=== PATIENT | female | born 1945 | race African-American/Black ===

== ENCOUNTER 2020-08-19 20:17 | Inpatient (IN) ==
[2020-08-19] MEDS ORDERED: niCARdipine 25 MG in SODIUM CHLORIDE 0.9% 240 ML IV PRN (20:35)
[2020-08-19] MEDS ORDERED: haloperidoL 5 MG TAB PO STA (20:41)
[2020-08-19] MEDS ORDERED: LORazepam 1 MG TAB SL STA (20:41)
[2020-08-19 20:57] LABS: Basophils # (auto) 0.02 K/uL (0-0.2); Basophils % (auto) 0.3 %; Eosinophils % (auto) 1.3 %; Hematocrit (blood only) 41.3 % (37-47); Hemoglobin 13.9 g/dL (12.0-16.0); Immature Granulocytes # (auto) 0.03 K/uL (0.00-0.02); Immature Granulocytes % (auto) 0.4 %; Lymphocytes # (auto) 2.46 K/uL (1.2-3.4); Lymphocytes % (auto) 32.4 %; Mean Corpuscular Hemoglobin 31.9 pg (25-34); Mean Corpuscular Hgb Conc 33.7 g/dL (32-36); Mean Corpuscular Volume 94.7 fL (80-100); Mean Platelet Volume 11.2 fL (7.4-10.4); Monocytes # (auto) 0.76 K/uL (0.11-0.59); Neutrophils # (auto) 4.23 K/uL (1.4-6.5); Neutrophils % (auto) 55.6 %; Platelet Count 258 K/uL (130-400); RDW Coefficient of Variation 15.2 % (11.5-14.5); Red Blood Count 4.36 M/uL (4.2-5.4)
[2020-08-19] MEDS ORDERED: SODIUM CHLORIDE 0.9% 1000ML 1,000 ML IV ONE (20:57)
[2020-08-19 21:07] LABS: iSTAT Creatinine 1.2 mg/dl (0.6-1.3); iSTAT Hemoglobin 13.6 g/dl (12.0-16.0); iSTAT Ionized Calcium 1.09 mmol/l (1.12-1.32); iSTAT Potassium 6.3 mmol/L (3.3-5.0)
[2020-08-19 21:13] LABS: Alanine Aminotransferase 15 U/L (12-78); Albumin Level 3.2 gm/dl (3.4-5.0); Aspartate Aminotransferase 12 U/L (15-37); BUN Creatinine Ratio 12.3 (10-20); Blood Urea Nitrogen 18 mg/dl (7-18); Calcium 9.3 mg/dl (8.5-10.1); Carbon Dioxide 28 mmol/L (21-32); Chloride 108 mmol/L (98-107); Est GFR (African American) 41.7; Glucose 132 mg/dl (70-99); Potassium 4.2 mmol/L (3.5-5.1); Sodium 141 mmol/L (136-145)
[2020-08-19 21:24] LABS: Albumin Globulin Ratio 0.7 (0.9-2); Alkaline Phosphatase 98 U/L (45-117); Bilirubin,Total 0.2 mg/dl (0.2-1); Creatine Kinase 92 U/L (26-192); Creatine Kinase MB 1.3 ng/ml (0.5-3.6); Globulin 4.7 gm/dl (2.5-4.0); Total Protein 7.9 gm/dl (6.4-8.2); Troponin I < 0.015 ng/ml (0-0.045)
[2020-08-19] MEDS ORDERED: OPTIRAY 320 125ml IV ONE (21:43)
[2020-08-19] MEDS ORDERED: ASPIRIN CHEW 324 MG PO STA (23:18)
[2020-08-20] MEDS ORDERED: LABETALOL HCL IV 5 MG/ML 20ML IV STA (01:04)
[2020-08-20] MEDS ORDERED: ACETAMINOPHEN 325 MG TAB PO PRN (01:29)
[2020-08-20] MEDS ORDERED: LABETALOL HCL IV 5 MG/ML 20ML IV PRN (01:29)
[2020-08-20] MEDS ORDERED: GLUCAGON FOR INJ 1 MG VIAL SQ PRN (01:29)
[2020-08-20] MEDS ORDERED: DOCUSATE SODIUM 100 MG CAP PO PRN (01:29)
[2020-08-20] MEDS ORDERED: GLUCOSE 10 TABS/TUBE PO PRN (01:29)
[2020-08-20] MEDS ORDERED: DEXTROSE 50% 50 ML SYRINGE IV PRN (01:29)
[2020-08-20] MEDS ORDERED: GLUCOSE 40% GEL 15 GM TUBE PO PRN (01:29)
[2020-08-20] MEDS ORDERED: CARBOHYDRATES FOR HYPOGLYCEMIA PO PRN (01:29)
--- NOTE | 2020-08-20 01:51 | History & Physical Report ---
Date of Service August 19, 2020 Assessment & Plan (1) Altered mental status: 74yo AA female presenting with AMS, HTN. Patient was administered Ativan and Haldol in ER, blood pressure improved with IV Nicardipine now discontinued. Son reports patient has some dementia at baseline. Presently she is acting and mentating as usual - he notes no deficits. Labs are largely unremarkable - no leukocytosis, electrolytes WNL. She has mildly elevated Cr of 1.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 Patient is currently on no medications. Ddx to include hypertensive encephalopathy. Doubt acute basilar CVA as patient with no focal deficits, GRADY or visual disturbance. -Admit to PCU -Neuro checks per protocol -Check MRI brain -Check 2D echo -Check HgbA1C and Lipid panel -Check Utox, Ammonia level for AMS workup -PT/OT evaluation -Neurology consultation appreciated -Patient was previously taking ASA 325mg po TID. 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 Age indeterminant. Some suggestion of collateral formation with description of other vessels. I suspect chronic occlusion rather than acute. Patient with no neurological deficits and is currently back to baseline mental status per her son. -MRI Brain -Neurology consultation appreciated -Check Lipids, AIC -ASA 81mg po daily Present on Admission?: Yes (3) Diabetes: Mildly elevated blood sugar. Patient currently not on any diabetes medications -Check HgbA1C -ISS, goal blood sugar 100 - 140 -CC diet as tolerated Present on Admission?: Yes (4) Hypertension: Patient markedly hypertensive on arrival. She was started on Nicardipine drip in the ER which has subsequently been weaned off. Presently 176/88. She is not on any antihypertensive agents outpatient -Labetalol 10mg IV q 4 hours PRN BP >180/110 -Consider initiating antihypertensives - Thiazide, Calcium channel toan are preferred agents -Patient will need to establish care with a PCP Present on Admission?: Yes (5) CAD (coronary artery disease): Son recalls that patient had a treadmill stress test performed in 2014. Uncertain if she had a cardiac catheterization. She was told that she has some coronary disease but no intervention was needed. This was performed in [facility]. Presently without chest discomfort. EKG with no ischemic changes. -Record request -Continue ASA, change dose to 81mg daily -Patient may need statin therapy - Lipid panel in AM F/E/N - LR at 80mL/hr x 2 liters, electrolytes WNL, CC/AHA diet as tolerated - easy to ches Ppx - SCDs to bilateral LE Code - DNR/DNI per discussion with patient Dispo -Admit to PCU Patient will need to establish care with a PCP. Possibly [facility] for now as she is establishing her insurance. POC - Leif Campbell - son - [phone] Present on Admission?: Yes Admission and Anticipated Discharge Date Admission Date: August 19, 2020 History of Present Illness Chief Complaint: Altered mental status Primary Care Provider: NO PCP Lashell Campbell is a pleasant 74yo AA female presenting with AMS. Patient lives alone in an apartment above a restaurant in [place]. The restaurant noticed water was leaking from the ceiling upstairs. Police were called and found the patient on the floor with water all over the floor. She was confused and combative. She was administered Ativan en route to [facility]. On arrival patient found to be afebrile, HTN at 221/144. She was started on a Nicardipine drip in the ER with improvement in blood pressure. Patient's son at bedside and provides some history. He states that patient lives alone and usually does well. She has had two falls in the past and has been unable to get herself up. Patient relocated from [facility] 2 years ago. She does not routinely see a physician. Her son helps to care for her. Patient states that she tripped and fell in her home and that water was all over her floor. She is uncertain why there was so much water in her apartment. Details unclear. She denies head trauma, LOC. Denies fever, chest pain, palpitations, abdominal pain, nausea, vomiting. Denies GRADY/visual disturbance/numbness/tingling/weakness or difficulty walking. She has occasional chills as well as a dry cough. She has occasional diarrhea and constipation. Otherwise no complaints. Son states that she is at her baseline status at this time. ER Course: Haldol 5mg, Ativan, Nicardipine gtt, NSS Allergies Allergy/AdvReac Type Severity Reaction Status Date / Time aspirin [From Bufferin] Allergy Unknown Verified 08/19/20 23:07 calcium carbonate Allergy Unknown Verified 08/19/20 23:07 [From Bufferin] magnesium [From Bufferin] Allergy Unknown Verified 08/19/20 23:07 Penicillins Allergy Unknown Verified 08/19/20 23:07 Home Medications Medication Instructions Recorded Confirmed Type aspirin 325 mg PO TID 08/19/20 08/19/20 History Past Med/Surg History Medical History (Updated 08/20/20 @ 02:44 by Cira Mayer DO) CAD (coronary artery disease) Diabetes Hypertension Stroke 2002, no residual deficits Surgical History (Updated 08/20/20 @ 01:59 by Cira Mayer DO) No significant past surgical history Family History (Updated 08/20/20 @ 01:59 by Cira Mayer DO) Other Coronary heart disease Hypertension Social History (Updated 08/20/20 @ 02:00 by Cira Mayer DO) Smoking Status: Never smoker Hx Alcohol Use: No Hx Substance Use: No Preferred Language: Estonian Beliefs That Will Affect Care: Yazdanism Yazdanism Beliefs: Refusing care "It's in God's hands" Current Living Situation: Alone Other Information That Helps Us Care for You: No Feels Safe at Home: Yes Safety Concerns: Feels Safe At This Time Review of Systems Review of Systems: All systems reviewed & are unremarkable except as noted in HPI & below Physical Exam Physical Exam: General: patient resting comfortably, NAD, non-toxic in appearance, AA&O to self and hospital, able to answer most questions appropriately and follow commands Skin: warm, dry, intact, no rashes or lesions, toenails overgrown with onychomycosis HEENT: NC/AT, PERRL, EOMI, anicteric sclera, conjunctiva without injection, external ear normal to inspection and nontender, nares patent, moist mucus membranes, lower dentures only, no top teeth, no oropharyngeal lesions, neck supple, trachea midline, no LAD, no thyromegaly, no JVD Heart: +S1/S2, regular, no m/r/g Lungs: equal air entry bilaterally, no rales/rhonchi/wheezes Abd: +BS, soft, NT/ND, no masses/organomegaly/ascites, small umbilical hernia, nontender,soft and reducible Ext: warm, 2+ pulses in UE/LE bilaterally, no clubbing/cyanosis or edema Neuro: nonfocal, patient AA&O x 2, speech intact, CN II-XII intact, sensation to light touch intact, no facial droop, moving all extremities on command with equal strength 5/5, gait not assessed Results & Data Results & Data ([facility]) Vital Signs (Past 12 Hours) Vital Signs Temp Pulse Pulse Resp BP BP Pulse Ox 08/20/20 01:34 88 08/20/20 00:50 82 13 100 08/20/20 00:40 82 14 98 08/20/20 00:37 83 18 99 08/20/20 00:36 81 13 179/81 H 98 08/20/20 00:30 84 15 93 08/20/20 00:15 81 15 99 08/20/20 00:01 85 16 174/81 H 97 08/20/20 00:00 81 15 97 08/19/20 23:45 80 17 100 08/19/20 23:30 80 17 143/89 H 97 08/19/20 23:00 81 18 154/79 H 99 08/19/20 22:40 84 18 98 08/19/20 22:30 77 13 168/66 H 100 08/19/20 22:20 74 18 100 08/19/20 22:10 72 24 100 08/19/20 22:04 74 18 192/80 H 99 08/19/20 22:02 69 16 192/80 H 98 08/19/20 22:00 77 18 08/19/20 21:38 73 17 221/93 H 100 08/19/20 21:31 73 19 214/104 H 98 08/19/20 21:30 74 17 100 08/19/20 21:15 79 18 100 08/19/20 21:13 80 15 176/86 H 100 08/19/20 21:12 73 16 176/86 H 98 08/19/20 21:00 83 22 204/94 H 97 08/19/20 20:52 85 18 95 08/19/20 20:50 86 22 08/19/20 20:49 87 22 221/144 H 08/19/20 20:38 86 21 08/19/20 20:33 36.8 C 98 H 18 209/121 H 95 08/19/20 20:24 83 20 209/121 H Laboratory Results Lab Results 08/19/20 08/19/20 08/19/20 Range/Units 20:45 20:45 20:50 WBC 7.60 (4.8-10.8) K/uL RBC 4.36 (4.2-5.4) M/uL Hgb 13.9 (12.0-16.0) g/dL POC Hgb (12.0-16.0) g/dl Hct 41.3 (37-47) % POC Hct (37-47) % MCV 94.7 (80-100) fL MCH 31.9 (25-34) pg MCHC 33.7 (32-36) g/dL RDW Std Deviation 53.0 H (36.4-46.3) fL RDW Coeff of Gerry 15.2 H (11.5-14.5) % Plt Count 258 (130-400) K/uL MPV 11.2 H (7.4-10.4) fL Immature Gran % (Auto) 0.4 % Neut % (Auto) 55.6 % Lymph % (Auto) 32.4 % [place] % (Auto) 10.0 % Eos % (Auto) 1.3 % Baso % (Auto) 0.3 % Neut # (Auto) 4.23 (1.4-6.5) K/uL Lymph # (Auto) 2.46 (1.2-3.4) K/uL [place] # (Auto) 0.76 H (0.11-0.59) K/uL Eos # (Auto) 0.10 (0-0.5) K/uL Baso # (Auto) 0.02 (0-0.2) K/uL Immature Gran # (Auto) 0.03 H (0.00-0.02) K/uL POC Sodium (135-144) mmol/L Sodium 141 (136-145) mmol/L POC Potassium (3.3-5.0) mmol/L Potassium 4.2 (3.5-5.1) mmol/L POC Chloride (101-112) mmol/L Chloride 108 H (98-107) mmol/L Carbon Dioxide 28 (21-32) mmol/L POC Total CO2 (24-31) mmol/L Anion Gap 5.0 (3-11) POC Anion Gap (16-25) mmol/L POC BUN (7-18) mg/dl BUN 18 (7-18) mg/dl Creatinine 1.43 H (0.6-1.2) mg/dl POC Creatinine (0.6-1.3) mg/dl Est Cr Clr Drug Dosing Not Reportable Est GFR ( Amer) 41.7 Est GFR (Non-Af Amer) 36.0 BUN/Creatinine Ratio 12.3 (10-20) Glucose 132 H (70-99) mg/dl POC Glucose (other) (70-99) mg/dl Calcium 9.3 (8.5-10.1) mg/dl POC Ioniz Calcium Quoc (1.12-1.32) mmol/l Phosphorus 2.4 L (2.5-4.9) mg/dl Magnesium 2.3 (1.8-2.4) mg/dl Total Bilirubin 0.2 (0.2-1) mg/dl AST 12 L (15-37) U/L ALT 15 (12-78) U/L Alkaline Phosphatase 98 (45-117) U/L Total Creatine Kinase 92 (26-192) U/L CK-MB (CK-2) 1.3 (0.5-3.6) ng/ml CK/CKMB % Calc 1.4 (0-3.0) Troponin I < 0.015 (0-0.045) ng/ml Total Protein 7.9 (6.4-8.2) gm/dl Albumin 3.2 L (3.4-5.0) gm/dl Globulin 4.7 H (2.5-4.0) gm/dl Albumin/Globulin Ratio 0.7 L (0.9-2) TSH 3.710 (0.300-4.500) uIu/ml Ethyl Alcohol mg/dL (0-3) mg/dl COVID-19 Eval [facility] SARS-CoV-2, RNA, NAAT (NEGATIVE) 08/19/20 08/19/20 08/19/20 Range/Units 20:50 20:54 21:19 WBC (4.8-10.8) K/uL RBC (4.2-5.4) M/uL Hgb (12.0-16.0) g/dL POC Hgb 13.6 (12.0-16.0) g/dl Hct (37-47) % POC Hct 40 (37-47) % MCV (80-100) fL MCH (25-34) pg MCHC (32-36) g/dL RDW Std Deviation (36.4-46.3) fL RDW Coeff of Gerry (11.5-14.5) % Plt Count (130-400) K/uL MPV (7.4-10.4) fL Immature Gran % (Auto) % Neut % (Auto) % Lymph % (Auto) % [place] % (Auto) % Eos % (Auto) % Baso % (Auto) % Neut # (Auto) (1.4-6.5) K/uL Lymph # (Auto) (1.2-3.4) K/uL [place] # (Auto) (0.11-0.59) K/uL Eos # (Auto) (0-0.5) K/uL Baso # (Auto) (0-0.2) K/uL Immature Gran # (Auto) (0.00-0.02) K/uL POC Sodium 139 (135-144) mmol/L Sodium (136-145) mmol/L POC Potassium 6.3 H* (3.3-5.0) mmol/L Potassium (3.5-5.1) mmol/L POC Chloride 107 (101-112) mmol/L Chloride (98-107) mmol/L Carbon Dioxide (21-32) mmol/L POC Total CO2 31 (24-31) mmol/L Anion Gap (3-11) POC Anion Gap 9.0 L (16-25) mmol/L POC BUN 27 H (7-18) mg/dl BUN (7-18) mg/dl Creatinine (0.6-1.2) mg/dl POC Creatinine 1.2 (0.6-1.3) mg/dl Est Cr Clr Drug Dosing Est GFR ( Amer) Est GFR (Non-Af Amer) BUN/Creatinine Ratio (10-20) Glucose (70-99) mg/dl POC Glucose (other) 143 H (70-99) mg/dl Calcium (8.5-10.1) mg/dl POC Ioniz Calcium Quoc 1.09 L (1.12-1.32) mmol/l Phosphorus (2.5-4.9) mg/dl Magnesium (1.8-2.4) mg/dl Total Bilirubin (0.2-1) mg/dl AST (15-37) U/L ALT (12-78) U/L Alkaline Phosphatase (45-117) U/L Total Creatine Kinase (26-192) U/L CK-MB (CK-2) (0.5-3.6) ng/ml CK/CKMB % Calc (0-3.0) Troponin I (0-0.045) ng/ml Total Protein (6.4-8.2) gm/dl Albumin (3.4-5.0) gm/dl Globulin (2.5-4.0) gm/dl Albumin/Globulin Ratio (0.9-2) TSH (0.300-4.500) uIu/ml Ethyl Alcohol mg/dL < 3.0 (0-3) mg/dl COVID-19 Eval Order SARS-CoV-2, RNA, NAAT NEGATIVE (NEGATIVE) Diagnostic Findings CT Head/CTA Head/CTA Neck: Per STAT-rad - Nonopacification of the basilar artery consistent wtih occlusion, age indeterminate. Diffuse thinning of the bilateral posterior cerebral arteries with suggestion of partial reconstitution of the tip or cephalad aspect of the basilar artery. Suggestion of occlusion of the distal aspect of the right posterior cerebral artery, age indeterminate. Unremarkable bilateral middle cerebral and anterior cerebral arteries with no other sites suggestive of high grade stenosis, occlusion or aneurysm. No ICH, mass effect or edema. No evidenc of acute cortical stroke. Periventricular small vessel ischemic change. Moderate generalized brain atrophy. Encephalomalacia within the right cerebellar hemisphere, likely sequela of old infarct or hemorrhage. Visualized sinuses and mastoid air cells are clear. Minor calcified atherosclerotic disease primarilyl in the region of the bulb with no evidence of stenosis, occlusion or dissection involving the bilateral carotid arteries. Unremarkable bilateral vertebral arteries. PG Care Time/CCT Total # of Minutes Spent Total Time Spent with Patient: Total time spent is greater than 50% in coordination of care (as documented) at patient's floor/unit and/or counseling patient: Coding Level of Care Code 08153 Initial Inpt Care Lvl 3 Diagnoses Altered mental status R41.0 Altered mental status type: disorientation Basilar artery occlusion I65.1 Diabetes E11.9 Diabetes mellitus type: type 2 Diabetes mellitus fdc insulin use: without local company intermodal truck driver use Diabetes mellitus complication status: without complication Hypertension I10 Hypertension type: essential hypertension CAD (coronary artery disease) I25.10 Coronary Disease-Associated Artery/Lesion type: [place] artery [place] vs. transplanted heart: [place] heart Associated angina: without angina (1) Diabetes Diabetes mellitus type: type 2 Diabetes mellitus fdc insulin use: w ithout fdc use Diabetes mellitus complication status: without complication Qualified Code(s): E11.9 - Type 2 diabetes mellitus without complications (2) CAD (coronary artery disease) Coronary Disease-Associated Artery/Lesion type: [place] artery [place] vs. transplanted heart: [place] heart Associated angina: without angina Qualified Code(s): I25.10 - Atherosclerotic heart disease of [place] coronary artery without angina pectoris (3) Hypertension Hypertension type: essential hypertension Qualified Code(s): I10 - Essential (primary) hypertension (4) Altered mental status Altered mental status type: disorientation Qualified Code(s): R41.0 - Disorientation, unspecified
[2020-08-20 01:53] LABS: Magnesium 2.3 mg/dl (1.8-2.4); Phosphorus 2.4 mg/dl (2.5-4.9)
[2020-08-20] MEDS: LACTATED RINGER'S 1,000 ML IV SCH ×2 (02:20→16:58)
[2020-08-20 06:31] LABS: Appearance Urine Clear (Clear); Bilirubin Urine Negative (Negative); Blood Urine Negative (Negative); Color Urine Yellow; Glucose Urine UA Negative (Negative); Ketones Urine Negative (Negative); Leukocyte Esterase Urine Negative (Negative); Nitrite Urine Negative (Negative); Protein Urine Negative (Negative); Urobilinogen Urine Negative (Negative)
[2020-08-20 06:50] LABS: Amphetamines+Metham, Urine Neg (Neg); Barbiturates, Urine Neg (Neg); Benzodiazepine, Urine Neg (Neg); Cocaine, Urine Neg (Neg); MDMA (Ecstacy), Urine Neg (Neg); Methadone, Urine Neg (Neg); Opiate, Urine Neg (Neg); Phencyclidine, Urine Neg (Neg)
[2020-08-20 06:58] LABS: Basophils # (auto) 0.02 K/uL (0-0.2); Basophils % (auto) 0.2 %; Eosinophils % (auto) 1.1 %; Hematocrit (blood only) 40.7 % (37-47); Hemoglobin 13.7 g/dL (12.0-16.0); Immature Granulocytes # (auto) 0.02 K/uL (0.00-0.02); Immature Granulocytes % (auto) 0.2 %; Lymphocytes # (auto) 3.49 K/uL (1.2-3.4); Lymphocytes % (auto) 39.9 %; Mean Corpuscular Hemoglobin 31.7 pg (25-34); Mean Corpuscular Hgb Conc 33.7 g/dL (32-36); Mean Corpuscular Volume 94.2 fL (80-100); Mean Platelet Volume 11.1 fL (7.4-10.4); Monocytes # (auto) 1.05 K/uL (0.11-0.59); Neutrophils # (auto) 4.07 K/uL (1.4-6.5); Neutrophils % (auto) 46.6 %; Platelet Count 214 K/uL (130-400); RDW Coefficient of Variation 15.3 % (11.5-14.5); RDW Standard Deviation 53.3 fL (36.4-46.3); Red Blood Count 4.32 M/uL (4.2-5.4); White Blood Count 8.75 K/uL (4.8-10.8)
[2020-08-20 07:21] LABS: BUN Creatinine Ratio 11.8 (10-20); Calcium 8.4 mg/dl (8.5-10.1); Creatinine Clr Calc Pharmacy 47.3 ml/min; Est GFR (African American) 59.2; Est GFR (Non-African American) 51.1; Potassium 3.9 mmol/L (3.5-5.1)
--- NOTE | 2020-08-20 07:54 | CT Scan Report ---
HEAD CT NONCONTRAST CT DOSE: 1212.86 mGy.cm HISTORY: Altered mental status. TECHNIQUE: Multiaxial CT images of the head were performed without the use of intravenous contrast. A utomated exposure control was utilized for this study. A dose lowering technique was utilized adheri ng to the principles of ALARA. Comparison: None. Findings: The paranasal sinuses and mastoid air cells are clear. The calvarium and skull base are int act. There is no mass, hematoma, midline shift, acute infarct. White matter hypodensity is nonspecifi c but suggestive of microvascular ischemic change. The ventricles and sulci demonstrate mild age-rela belia involutional changes. Old small left parietal infarct. There are also focal area of encephalomala abelardo within the cerebellar hemispheres consistent with old infarcts. No definite acute infarct identif ied. Impression: No acute intracranial abnormality. Old infarcts as described above. ACT 112: Negative or not required by law. Electronically signed by: Roland Jasso M.D. 08/20/2020 7:53 AM
[2020-08-20] MEDS: ASPIRIN 81 MG ECTAB PO SCH (08:09)
--- NOTE | 2020-08-20 08:39 | CT Scan Report ---
HEAD & NECK CTA HISTORY: Confusion. Stroke Like Symptoms TECHNIQUE: Multiaxial CT images of the head were performed following the intravenous administration o f contrast to evaluate the major cerebral vessels. Multiaxial CT images of the neck were also perform ed following the intravenous administration of contrast to evaluate the major cervical vessels. Maxim um intensity projection images were also obtained. A dose lowering technique was utilized adhering to the principles of ALARA. COMPARISON: None. FINDINGS: There is mild to moderate multifocal narrowing within the distal vertebral arteries. There is occlusi on of the basilar artery the bilateral telegraph mechanic are only faintly visualized and demonstrate diffuse thinn ing. The major dural venous sinuses appear patent. There is moderate to severe multifocal narrowing w ithin the bilateral intracranial internal carotid arteries due to the atherosclerotic plaque. There i s mild multifocal narrowing within the distal bilateral ACAs. There is also mild to moderate multifoc al narrowing seen within the bilateral M1 segments without occlusion. The aortic arch and proximal great vessels are widely patent. Mild to moderate narrowing at the rios gins of the bilateral vertebral arteries. There is also focal area of moderate to severe narrowing wi thin the proximal left vertebral artery at the C7 level best seen on image 134. There is mild multifo patricia narrowing at the distal vertebral arteries at the C1 level. Mild atherosclerotic plaque at the bi lateral carotid bifurcations. However, no significant stenosis or occlusion within the bilateral comm on or internal carotid arteries. There is a 4 mm penetrating ulcer at the proximal left subclavian ar gabriel. IMPRESSION: 1. Occlusion of the basilar artery with diffuse moderate to severe thinning of the bilateral telegraph mechanic. Th leticia are only faintly visualized on this study likely due to the occluded basilar artery. 2. Multifocal narrowing seen throughout the intracranial internal carotid arteries, bilateral ACAs, a nd bilateral MCA's without occlusion. 3. Multifocal narrowing within the bilateral cervical vertebral arteries as described above. 4. No significant stenosis or occlusion within the bilateral common or internal carotid arteries. 5. A 4 mm penetrating ulcer at the proximal left subclavian artery. ACT 112: Negative or not required by law. Electronically signed by: Roland Jasso M.D. 08/20/2020 8:37 AM
--- NOTE | 2020-08-20 08:42 | XRay Report ---
XR chest 1V portable CLINICAL HISTORY: weakness COMPARISON STUDY: No previous studies for comparison. FINDINGS: The heart is mildly enlarged. There is no failure. There is no focal pulmonary consolidatio n. There are no pleural effusions. There is a prominent left cardiophrenic angle fat pad. There is a calcified granuloma the left lung base. There are no significant pleural effusions.[ IMPRESSION: No active disease in the chest. ACT 112: Negative or not required by law. Electronically signed by: Shar Spear M.D. 08/20/2020 8:41 AM
[2020-08-20] MEDS: INSULIN ASPART 100 UNITS/ML 3 ML PEN SC SCH ×4 (08:54→21:42)
--- NOTE | 2020-08-20 10:24 | Electrocardiogram Report ---
Test Reason : Blood Pressure : / mmHG Vent. Rate : 089 BPM Atrial Rate : 089 BPM P-R Int : 166 ms QRS Dur : 080 ms QT Int : 338 ms P-R-T Axes : 023 -13 081 degrees QTc Int : 411 ms Normal sinus rhythm Possible Left atrial enlargement Nonspecific T wave abnormality Abnormal ECG No previous ECGs available Confirmed by Min Sultana ([id number]) on 08/20/2020 10:24:10 AM Referred By: REFERRED SELF Confirmed By:Min Sultana
--- NOTE | 2020-08-20 10:26 | Neurology Consultation ---
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 This morning, she does not seem delirious, but is sleepy ( Haldol and Ativan given in the ER last evening because of combativeness). She is not combative or agitated at all. I believe she currently has significant underlying dementia. There are no focal abnormalities on physical exam and no meningeal signs. I do not believe she had a stroke but I cannot exclude this. CT of the head shows multiple old ischemic strokes in the left parietal and cerebellar hemispheres. She has a history of significant hypertension which was not controlled on admission (certainly controlled currently) and has a basilar artery occlusion noted on CT angiography. In addition she has multiple areas of narrowing and stenosis in most of the major arteries of her head and neck bilaterally. I believe all of this is old (an acute basilar artery occlusion would be devastating clinically) and she has been on a high daily dose of aspirin recently. She has not been receiving adequate medical attention ( her choice) and lives alone. Recommendations: 1. although I would prefer an MRI of the brain without contrast to evaluate for acute stroke I do not believe the patient would consent or cooperate for this study at this time. We can hold off on this for now. A repeat CT scan of the head later today to compare could be ordered. 2. physical, occupational, and speech therapy consult. Increase activity as able. 3. Social service consult. This patient should not live alone any more. 4. I would discontinue aspirin and consider clopidogrel 75 milligrams daily for stroke prevention and hoping that cerebral arteries remain open. There is nothing we can do for the occluded basilar artery and she is not an anticoagulant candidate. Overall, I spent a total of 60 minutes with this case including review of records, review of CT films, direct evaluation the patient at bedside, and discussion of the case with the RN at bedside, patient, and Dr. Bang, including differential diagnosis and treatment options. History of Present Illness Reason for Consultation: Patient is a 74-year-old, who I was asked to see at the request of Dr. Mayer, for neurologic consultation regarding altered mental status and basilar artery occlusion. Requesting Physician: Dr. Mayer Attending Physician: Itz Bang History of Present Illness patient cannot give any type of meaningful history this morning. Apparently she has a history of hypertension, diabetes, coronary artery disease, and he stroke in 2002 of uncertain location or severity. She had recently (About 2 years ago) moved to the [facility] from [place]. she apparently is supposed to be on aspirin but takes 3 regular aspirin per day. She lives alone in an apartment in [place] and does not obtain regular medical attention. Apparently she was found confused and combative in her apartment last evening and water was on the floor to the extent that it was leaking down below into the restaurant she was living above. She arrived to the emergency room at 2023 on August 19 with a temperature of 36.8, pulse 98, respiratory rate 18, blood pressure 2/9 over 121, and O2 saturation 95 percent. She was somewhat confused in the emergency room motor neuro exam physically was normal with no focal weakness or other abnormalities. CBC and Chem profile were largely unremarkable although the glucose was 132. CK was 92 and TSH was 3.7. Alcohol level was 0 and she had a negative tox screen. Chest x-ray was unremarkable. CT scan of the head showed multiple old infarcts in the cerebellar hemispheres and left parietal head region. CT angiography of the head neck revealed multiple abnormalities including an occluded basilar artery with thin posterior cerebral arteries bilaterally. There was multifocal narrowing in the distal internal carotid arteries, anterior cerebral arteries, and middle cerebral arteries bilaterally. Cervical vertebral arteries were narrow as well. The patient is unable to consent for or cooperate for an MRI. She complains of pain in her feet ( which has been going on a long time) and feeling very fatigued. Otherwise she has no headache or other complaints. She wants to go back to sleep. She has had normal sinus rhythm overnight with a heart rate in the 60s. Blood pressure is 144/68 this morning and repeat CBC and Chem profile were unremarkable. Triglyceride was 163 and total cholesterol was 182. hemoglobin A1c is pending. Allergies Allergy/AdvReac Type Severity Reaction Status Date / Time aspirin [From Bufferin] Allergy Unknown Verified 08/19/20 23:07 calcium carbonate Allergy Unknown Verified 08/19/20 23:07 [From Bufferin] magnesium [From Bufferin] Allergy Unknown Verified 08/19/20 23:07 Penicillins Allergy Unknown Verified 08/19/20 23:07 Home Medications Medication Instructions Recorded Confirmed Type aspirin 325 mg PO TID 08/19/20 08/19/20 History Patient History Medical History CAD (coronary artery disease) Diabetes Hypertension Stroke 2002, no residual deficits Surgical History No significant past surgical history Family History Other Coronary heart disease Hypertension Social History Smoking Status: Never smoker Hx Alcohol Use: No Hx Substance Use: No Preferred Language: Yoruba Beliefs That Will Affect Care: Scientology Scientology Beliefs: Refusing care "It's in God's hands" Current Living Situation: Alone Other Information That Helps Us Care for You: No Feels Safe at Home: Yes Safety Concerns: Feels Safe At This Time Review of Systems Constitutional: + fatigue and + weakness; no fever Eyes: no diplopia, no eye pain and no worsening vision Ear, Nose, Mouth, Throat: no ear pain, no tinnitus, no hearing loss, no dizziness, no hoarseness and no dysphagia Respiratory: no cough and no dyspnea Cardiovascular: no chest pain, no palpitations and no lightheadedness Gastrointestinal: no abdominal pain, no nausea and no vomiting Genitourinary: no dysuria, no urinary frequency and no urinary incontinence Musculoskeletal: no back pain, no neck pain, no radicular pain, no joint pain and no myalgia Integumentary: no rash and no lesions Neurologic: + generalized weakness, + confusion and + memory loss; no gait abnormality, no localized weakness, no tingling, no numbness, no tremor(s), no abnormal movements, no headache(s) and no abnormal speech Psychiatric: + difficulty concentrating and + confusion; no depression, no irritability, no anxiety and no hallucinations Endocrine: no fatigue and no flushing Hematologic / Lymphatic: no easy bleeding and no easy bruising Allergy / Immunological: no urticaria and no problem reported Exam (Neuro) Physical Exam: The patient is right-handed. The patient is very sleepy and tired but easily aroused with voice. If left alone she will drift back to sleep. Speech is normal without any aphasia or dysarthria. She is pleasant and cooperative to a degree but sometimes she will refuse to answer or do a certain command. She knew her name and figured out the month. She believed that the presidents were [place] and [place]. she did not know her age, what town she was in ( and did not realize she was in a hospital), the day, the date, or the year. Pupils are 4 mm bilaterally and reactive to light. Extraocular eye muscles are intact without nystagmus. Visual acuity and visual storey seem normal grossly to confrontation but was difficult to be certain. There are no deficits to sensation in the face in all 3 distributions of the fifth cranial nerve bilaterally. Corneal reflexes are positive bilaterally. Facial strength and symmetry was normal bilaterally. Hearing seems normal to whisper and finger rub bilaterally. Palate moves well without asymmetry. There is normal sternocleidomastoid and trapezius (shoulder shrug) strength bilaterally. Tongue is midline with good strength bilaterally. Neck has a full range of motion without discomfort. There are no cervical bruits bilaterally. There are no cranial or ocular bruits. Heart is without murmur. There is a regular rhythm and rate. Cervical, thoracic, and lumbar spine are nontender to palpation. Gait and stance were not tested as the patient would not cooperate to sit up. With outstretched arms there is no drift. There are no resting, postural, or action tremors. There is no ataxia with finger to nose testing. There is good facility in the hands. No other abnormal involuntary movements are noted. Motor strength is 5/5 diffusely in the arms bilaterally including deltoids, maritza ps, triceps, brachioradialis, wrist flexors and extensors, mobile unit assistant, and intrinsic hand muscles. Motor strength is 5/5 diffusely in the legs bilaterally including hip flexors, quadriceps, hamstrings, gastrocnemius, tibialis anterior, tibialis posterior, and Peroneii muscles. Toe extensors are normal and there is good bulk in the extensor digitorum brevis muscles bilaterally. The limbs have good tone without rigidity or spasticity. There is no atrophy noted in the muscles. Muscle bulk is normal, there is no tenderness to palpation, no myotonia to percussion, and no fasciculations seen. Sensory examination is intact to touch and pin throughout all 4 limbs diffusely. Reflexes are 1/4 in the biceps, triceps, brachioradialis, quadriceps, and Achilles tendons bilaterally. There is no clonus bilaterally. Toes are downgoing with plantar stimulation bilaterally. Peripheral pulses are present and of normal quality distally in all 4 limbs. There is no peripheral edema noted in the limbs. Results & Data ([facility]) Vital Signs (Past 12 Hours) Vital Signs Temp Pulse Pulse Resp BP BP Pulse Ox 08/20/20 07:04 36.5 C 62 16 144/68 H 99 08/20/20 07:00 72 08/20/20 03:57 36.5 C 69 20 162/71 H 97 08/20/20 01:34 88 08/20/20 01:29 36.7 C 80 22 176/88 H 100 08/20/20 00:50 82 13 100 08/20/20 00:40 82 14 98 08/20/20 00:37 83 18 99 08/20/20 00:36 81 13 179/81 H 98 08/20/20 00:30 84 15 93 08/20/20 00:15 81 15 99 08/20/20 00:01 85 16 174/81 H 97 08/20/20 00:00 81 15 97 08/19/20 23:45 80 17 100 08/19/20 23:30 80 17 143/89 H 97 08/19/20 23:00 81 18 154/79 H 99 08/19/20 22:40 84 18 98 08/19/20 22:30 77 13 168/66 H 100 08/19/20 22:20 74 18 100 08/19/20 22:10 72 24 100 PG Care Time/CCT Total # of Minutes Spent Total Time Spent with Patient: Total time spent is greater than 50% in coordination of care (as documented) at patient's floor/unit and/or counseling patient: Coding Level of Care Code 83085 Initial Inpt Care Lvl 3 Diagnoses Altered mental status R41.0 Altered mental status type: disorientation Dementia F03.90 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
--- NOTE | 2020-08-20 19:51 | Hospitalist Progress Note ---
Date of Service August 20, 2020 Assessment & Plan (1) Hypertensive urgency: resolved. briefly was on nicardipine drip in ER then quickly weaned off. was not taking any meds at home for HTN. marked elevation in BPs may have been worsened by severe agitation requiring haldol/ativan. son reports had been on metoprolol in the past but she had taken her self off of it. was apparently trying to control her BPs "naturally." will restart metoprolol succinate 25mg daily. asa 81mg daily. (2) Altered mental status: Leif, the pt's son, reports her mother is now at baseline. Cause of altered mental status yesterday at presentation - hypertensive encephalopathy? new stroke process? other? I agree w/ Dr Kent that obtaining an MRI head would be difficult if not impossible. We did attempt to send her down for MRI - she flat out refused to get it. defer for now. no signs on physical exam of seizure (tongue bite prajapati, etc) but can't rule it out. defer on EEG for now, however. (3) Fall: unknown details - unwitnessed. found on floor in apartment. CPK wnl. PT, OT evals. not safe to live alone in apartment. likely placement. fortunately no apparent injuries from the fall. (4) Chronic cerebral ischemia: CTA and CT head with old strokes, extensive vascular disease/stenoses/plaque build-up, etc. Son confirms prior TIAs and "mini-strokes" while she was living in [place] years ago. Cont asa 81mg daily for secondary prevention. Consider high-intensity statin but uncertain benefits are there given her advanced dementia. (5) Dementia: likely of vascular type given her imaging studies appreciate neuro recs (6) Recurrent strokes: as seen on CT head (7) Basilar artery occlusion: Patient found to have basilar artery occlusion on CTA head. Age indeterminant. Likely chronic occlusion rather than acute. Continue asa. Consider statin. (8) Diabetes: T2DM suspected. Glucose 132 at admission. Check HgbA1C. Novolog SSI in meantime. (9) Hypertension: With HTN urgency at presentation. HTN urgency resolved. BPs improved. Start metoprolol succ 25mg in am. (10) CAD (coronary artery disease): 2015 - cardiac catheterization - nonobstructive CAD found. Performed in [facility]. Continue ASA, change dose to 81mg daily Consider statin given LDL and her prior strokes, CAD, PAD, etc. (11) History of mood disorder: depression with psychosis - 1991 - hospitalized for such; required antipsychotics then, SSRIs, etc. check B1, B12 in am to be complete. add seroquel 12.5mg HS given high risk of sundowning / delirium. this will help her paranoia. TSH noted to be normal. (12) DVT prophylaxis: lovenox 40mg daily sonLeif, extensively updated today dispo planning - dementia unit at [facility] or [facility]?? stop IV fluids PT, OT jenials requested Admission and Anticipated Discharge Date Admission Date: August 19, 2020 Subjective tele stable overnight. during the visit patient was resting quietly in bed watching the news on TV. she was somewhat uncooperative during the visit -- several questions I asked she said "just look it up in the chart." she would not let me perform certain portions of the exam - examining oral cavity, etc. she could not tell me the year, where she was, or why she was here. she said "you know." she talked about God multiple times and wanting to read her Bible. Review of Systems Review of Systems: Unobtainable due to cognitive status could not elicit meaningful history either Physical Exam Constitutional: + obese and + altered mental status; no acute distress ENMT: Mouth: no tongue abnormality (anterior tongue w/o bite prajapati, thrush, etc.) and oral mucous membranes not dry Respiratory: normal respiratory effort, lungs clear to auscultation Cardiovascular: Rate/Rhythm: regular rate and regular rhythm Heart Sounds: normal S1 and normal S2 Vessels: posterior tibial pulses present and dorsalis pedis pulses present; no JVD Extremities: no edema Gastrointestinal (Abdomen): normal bowel sounds, soft, nontender, no hepat osplenomegaly Inspection/Auscultation: + visible herniation (umbilical - reducible; and ventral hernia superior to the umbilicus ) Neurologic: moves all extremities Psychiatric: Orientation: alert and oriented to person; + not oriented to place and + not oriented to time Results & Data Results & Data ([facility]) Vital Signs (Past 12 Hours) Vital Signs Temp Pulse Pulse Resp BP Pulse Ox 08/20/20 19:29 37.0 C 78 18 158/78 H 97 08/20/20 15:18 36.8 C 64 17 167/78 H 98 08/20/20 14:52 61 Laboratory Results Laboratory Results - last 24 hr 08/19/20 08/20/20 08/20/20 20:45 06:00 06:00 WBC RBC Hgb Hct MCV MCH MCHC RDW Std Deviation RDW Coeff of Gerry Plt Count MPV Immature Gran % (Auto) Neut % (Auto) Lymph % (Auto) [place] % (Auto) Eos % (Auto) Baso % (Auto) Neut # (Auto) Lymph # (Auto) [place] # (Auto) Eos # (Auto) Baso # (Auto) Immature Gran # (Auto) Sodium Potassium Chloride Carbon Dioxide Anion Gap BUN Creatinine Est Cr Clr Drug Dosing Est GFR ( Amer) Est GFR (Non-Af Amer) BUN/Creatinine Ratio Glucose POC Glucose Estimat Average Glucose Hemoglobin A1c Calcium Phosphorus 2.4 L Magnesium 2.3 Ammonia Triglycerides Cholesterol LDL Cholesterol, Calc VLDL Cholesterol, Calc HDL Cholesterol Cholesterol/HDL Ratio Urine Color Yellow Urine Appearance Clear Urine pH 8.0 H Ur Specific [place] 1.020 Urine Protein Negative Urine Glucose (UA) Negative Urine Ketones Negative Urine Blood Negative Urine Nitrite Negative Urine Bilirubin Negative Urine Urobilinogen Negative Ur Leukocyte Esterase Negative Urine Opiates Screen Neg Ur Methadone, Qual Neg Urine Barbiturates Neg Ur Phencyclidine (PCP) Neg U Amphetamin/Meth Scrn Neg MDMA (Ecstasy) Screen Neg U Benzodiazepines Scrn Neg Ur Cocaine Metabolite Neg U Marijuana (THC) Screen Neg 08/20/20 08/20/20 08/20/20 06:39 06:39 06:39 WBC 8.75 RBC 4.32 Hgb 13.7 Hct 40.7 MCV 94.2 MCH 31.7 MCHC 33.7 RDW Std Deviation 53.3 H RDW Coeff of Gerry 15.3 H Plt Count 214 MPV 11.1 H Immature Gran % (Auto) 0.2 Neut % (Auto) 46.6 Lymph % (Auto) 39.9 [place] % (Auto) 12.0 Eos % (Auto) 1.1 Baso % (Auto) 0.2 Neut # (Auto) 4.07 Lymph # (Auto) 3.49 H [place] # (Auto) 1.05 H Eos # (Auto) 0.10 Baso # (Auto) 0.02 Immature Gran # (Auto) 0.02 Sodium 141 Potassium 3.9 Chloride 109 H Carbon Dioxide 27 Anion Gap 5.0 BUN 13 Creatinine 1.07 Est Cr Clr Drug Dosing 47.3 Est GFR ( Amer) 59.2 Est GFR (Non-Af Amer) 51.1 BUN/Creatinine Ratio 11.8 Glucose 127 H POC Glucose Estimat Average Glucose Pending Hemoglobin A1c Pending Calcium 8.4 L Phosphorus Magnesium Ammonia Triglycerides 163 H Cholesterol 182 LDL Cholesterol, Calc 117 VLDL Cholesterol, Calc 33 HDL Cholesterol 32 Cholesterol/HDL Ratio 6 Urine Color Urine Appearance Urine pH Ur Specific [place] Urine Protein Urine Glucose (UA) Urine Ketones Urine Blood Urine Nitrite Urine Bilirubin Urine Urobilinogen Ur Leukocyte Esterase Urine Opiates Screen Ur Methadone, Qual Urine Barbiturates Ur Phencyclidine (PCP) U Amphetamin/Meth Scrn MDMA (Ecstasy) Screen U Benzodiazepines Scrn Ur Cocaine Metabolite U Marijuana (THC) Screen 08/20/20 08/20/20 08/20/20 06:39 07:19 11:48 WBC RBC Hgb Hct MCV MCH MCHC RDW Std Deviation RDW Coeff of Gerry Plt Count MPV Immature Gran % (Auto) Neut % (Auto) Lymph % (Auto) [place] % (Auto) Eos % (Auto) Baso % (Auto) Neut # (Auto) Lymph # (Auto) [place] # (Auto) Eos # (Auto) Baso # (Auto) Immature Gran # (Auto) Sodium Potassium Chloride Carbon Dioxide Anion Gap BUN Creatinine Est Cr Clr Drug Dosing Est GFR ( Amer) Est GFR (Non-Af Amer) BUN/Creatinine Ratio Glucose POC Glucose 100 H 149 H Estimat Average Glucose Hemoglobin A1c Calcium Phosphorus Magnesium Ammonia < 10.0 L Triglycerides Cholesterol LDL Cholesterol, Calc VLDL Cholesterol, Calc HDL Cholesterol Cholesterol/HDL Ratio Urine Color Urine Appearance Urine pH Ur Specific [place] Urine Protein Urine Glucose (UA) Urine Ketones Urine Blood Urine Nitrite Urine Bilirubin Urine Urobilinogen Ur Leukocyte Esterase Urine Opiates Screen Ur Methadone, Qual Urine Barbiturates Ur Phencyclidine (PCP) U Amphetamin/Meth Scrn MDMA (Ecstasy) Screen U Benzodiazepines Scrn Ur Cocaine Metabolite U Marijuana (THC) Screen 08/20/20 08/20/20 16:13 20:56 WBC RBC Hgb Hct MCV MCH MCHC RDW Std Deviation RDW Coeff of Gerry Plt Count MPV Immature Gran % (Auto) Neut % (Auto) Lymph % (Auto) [place] % (Auto) Eos % (Auto) Baso % (Auto) Neut # (Auto) Lymph # (Auto) [place] # (Auto) Eos # (Auto) Baso # (Auto) Immature Gran # (Auto) Sodium Potassium Chloride Carbon Dioxide Anion Gap BUN Creatinine Est Cr Clr Drug Dosing Est GFR ( Amer) Est GFR (Non-Af Amer) BUN/Creatinine Ratio Glucose POC Glucose 210 H 154 H Estimat Average Glucose Hemoglobin A1c Calcium Phosphorus Magnesium Ammonia Triglycerides Cholesterol LDL Cholesterol, Calc VLDL Cholesterol, Calc HDL Cholesterol Cholesterol/HDL Ratio Urine Color Urine Appearance Urine pH Ur Specific [place] Urine Protein Urine Glucose (UA) Urine Ketones Urine Blood Urine Nitrite Urine Bilirubin Urine Urobilinogen Ur Leukocyte Esterase Urine Opiates Screen Ur Methadone, Qual Urine Barbiturates Ur Phencyclidine (PCP) U Amphetamin/Meth Scrn MDMA (Ecstasy) Screen U Benzodiazepines Scrn Ur Cocaine Metabolite U Marijuana (THC) Screen PG Care Time/CCT Total # of Minutes Spent Total Time Spent with Patient: Total time spent is greater than 50% in coordination of care (as documented) at patient's floor/unit and/or counseling patient: Coding Level of Care Code 35265 Subseq Hosp Care Lvl 3 Diagnoses Hypertensive urgency I16.0 Altered mental status R41.0 Altered mental status type: disorientation Fall W19.XXXD Encounter type: subsequent encounter Chronic cerebral ischemia I67.82 Dementia F01.50 Dementia behavioral disturbance: without behavioral disturbance Dementia type: vascular dementia Recurrent strokes I63.9 Basilar artery occlusion I65.1 Diabetes E11.9 Diabetes mellitus complication status: without complication Diabetes mellitus half-way insulin use: without long wall mining machine helper use Diabetes mellitus type: type 2 Hypertension I10 Hypertension type: essential hypertension CAD (coronary artery disease) I25.10 Associated angina: without angina Coronary Disease-Associated Artery/Lesion type: [place] artery [place] vs. transplanted heart: [place] heart History of mood disorder Z86.59 DVT prophylaxis Z29.9 (1) Diabetes Diabetes mellitus complication status: without complication Diabetes mellitus long wall mining machine helper insulin use: without long wall mining machine helper use Diabetes mellitus type: type 2 Qualified Code(s): E11.9 - Type 2 diabetes mellitus without complications (2) CAD (coronary artery disease) Associated angina: without angina Coronary Disease-Associated Artery/Lesion type: [place] artery [place] vs. transplanted heart: [place] heart Qualified Code(s): I25.10 - Atherosclerotic heart disease of [place] coronary artery without angina pectoris (3) Dementia Dementia behavioral disturbance: without behavioral disturbance Dementia type: vascular dementia Qualified Code(s): F01.50 - Vascular dementia without behavioral disturbance (4) Hypertension Hypertension type: essential hypertension Qualified Code(s): I10 - Essential (primary) hypertension (5) Fall Encounter type: subsequent encounter Qualified Code(s): W19.XXXD - Unspecified fall, subsequent encounter (6) Altered mental status Altered mental status type: disorientation Qualified Code(s): R41.0 - Disorientation, unspecified
--- NOTE | 2020-08-20 20:32 | Emergency Department Note ---
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 There was concern when the patient's water in her apartment overflowed into the apartment below her's. The neighbor called police and EMS. They found the patient barricaded in her own apartment crawling around on her hands and k nees and water. The patient appeared very confused and was therefore brought to the emergency department. Upon arrival to the emergency department the patient is not quite making sense but knows she is in a hospital. ROS: Unobtainable due to altered mental status PAST MEDICAL HISTORY: See Below PAST SURGICAL HISTORY: See Below FAMILY HISTORY: See Below SOCIAL HISTORY: See Below HOME MEDICATIONS: See Below ALLERGIES: See Below VITALS: See Below PHYSICAL EXAMINATION: VITAL SIGNS - Vital signs and nursing notes were reviewed. GENERAL - 74-year-old female appearing stated age who is in no acute distress. paranoid and confused SKIN - Without rashes. HEAD - NC/AT. EYES - PERRL with EOMI bilaterally. Sclera anicteric. Palpebral conjunctiva pink and moist with no injection noted. EARS - No deformities of external structures noted on gross examination bilaterally. NOSE - Midline and without cyanosis. No epistaxis or purulent drainage noted. Septum midline without deviation or septal hematoma noted. MOUTH/OROPHARYNX - Without perioral cyanosis. Buccal mucosa pink and moist and without leukoplakia. Tongue midline with equal elevation of palate bilaterally. No tonsillar hypertrophy, erythema, or exudates noted. dentition noted. NECK - Neck with FROM. Supple to palpation. lymphadenopathy noted. No nuchal rigidity. LUNGS - Chest wall symmetric without accessory muscle use, intercostals retractions, or central cyanosis. Normal vesicular breath sounds CTA B/L. No wheezes, rales, or rhonchi appreciated. CARDIAC - RRR with S1/S2. No murmur, rubs, or gallops appreciated. ABDOMEN - Abdominal contour without pulsations or visible masses. BS norm oactive all four quadrants. No tenderness, palpable masses, hepatosplenomegaly, or ascites noted. EXTREMITIES - No clubbing or peripheral cyanosis. No pretibial edema present. +3/5 radial, posterior tibial, and dorsalis pedis pulses palpated throughout. +5/5 strength noted in UE/LE bilaterally. NEUROLOGIC - Cranial nerves II through XII grossly intact. Sensory intact to light touch throughout. Patellar reflexes +2/4. PSYCH - A&Ox3 and cooperates fully with examiner. Pt is very pleasant and in teracts well with examiner. MEDICAL DECISION MAKING: Patient was seen and evaluated as above in room C6. Review was performed of nursing notes and vital signs. I did review pertinent previous visits and patient history. After obtaining a thorough history and physical examination the above work up was performed. This is a 74-year-old female found crawling around on the floor with an altered mental status. Due to the nature of the patient's mental status change a stroke alert was initiated the patient was sent for CAT scan of the head. This is concerning for what appears to be a stroke in the cerebellum I will note that the patient does not if he appeared dizzy. Due to the patient's change in mental status I do feel she needs to be admitted to the hospital. Her son is at the bedside I did discuss all these findings with him. Patient was given magnesium here in the emergency department as well as aspirin. She was started on nicardipine drip to get her blood pressure under control. An order was placed for continuous cardiac monitoring. The monitor shows a rate of 101 with Normal SInus rhythm. The patient was evaluated during a period of high volume and high acuity during the global COVID-19 pandemic, and that diagnosis was suspected/considered upon their initial presentation. Their evaluation, treatment and testing was consistent with current guidelines for patients who present with complaints or symptoms that may be related to COVID-19. Patient was seen while provider was wearing PPE. Triage Nursing notes reviewed. Prior medical records reviewed Vital Signs: reviewed and remarkable for no significant abnormalities Differential diagnosis: Infection, dehydration, metabolic abnormality, hypo/hyperglycemia, electrolyte disturbance, anemia, hypoxia, cardiac sources, intracerebral event, toxicologic, neurologic, as well as other pathologies. ER treatment provided: See below Diagnostics interpreted by me: ECG: EKG shows a normal sinus rhythm possible left atrial enlargement no ST elevation or depression QTC is 411 ventricular rate is 89 no previous EKGs to compare to Laboratory studies: [As stated above and show below.] Imaging studies: [facility], [id number] XRay Report Patient: ISIDRA BRODERICK Date: 08/19/20MR#: [id number]: [address] JOSI[address]sch ID:[id number]: Date: [address] [place] [address] Zip: [place], [place] [address]Tev: 74Location: 2SSex: FRoom/Bed: [id number] Phy: Cira Mayer D.O.Diagnosis: confusion, AMSPri Phy: PCP,NOService Date: 08/19/20Fa Phy:Interpreting Phy: Shar Spear MDAit Phy: Cira Mayer D.O. Ordering Phy: Boone Key MD cc: ~ XR chest 1V portable CLINICAL HISTORY: weakness COMPARISON STUDY: No previous studies for comparison. FINDINGS: The heart is mildly enlarged. There is no failure. There is no focal pulmonary consolidation. There are no pleural effusions. There is a prominent left cardiophrenic angle fat pad. There is a calcified granuloma the left lung base. There are no significant pleural effusions.[ IMPRESSION: No active disease in the chest. ACT 112: Negative or not required by law. Electronically signed by: Shar Spear M.D. 08/20/2020 8:41 AM Dictated: 08/20/20 0840Transcribed: 08/20/20 0840 [facility], [id number] CT Scan Report Patient: ISIDRA BRODERICK Date: 08/19/20MR#: [id number]: 105 [facility] PAMAcc ID:[id number]: Date: 1945[facility] Zip: [place], [place] [address]Ole: 74Location: 2SSex: FRoom/Bed: [id number] Phy: Cira Mayer D.O.Diagnosis: confusion, AMSPri Phy: PCP,NOService Date: 08/19/20Fam Phy:Interpreting Phy: Roland Jasso MDAdmit Phy: Cira Mayer D.O. Ordering Phy: Boone Key MD cc: ~ HEAD & NECK CTA HISTORY: Confusion. Stroke Like Symptoms TECHNIQUE: Multiaxial CT images of the head were performed following the intravenous administration of contrast to evaluate the major cerebral vessels. Multiaxial CT images of the neck were also performed following the intravenous administration of contrast to evaluate the major cervical vessels. Maximum intensity projection images were also obtained. A dose lowering technique was utilized adhering to the principles of ALARA. COMPARISON: None. FINDINGS: There is mild to moderate multifocal narrowing within the distal vertebral arteries. There is occlusion of the basilar artery the bilateral medical clerical assistant are only faintly visualized and demonstrate diffuse thinning. The major dural venous sinuses appear patent. There is moderate to severe multifocal narrowing within the bilateral intracranial internal carotid arteries due to the atherosclerotic plaque. There is mild multifocal narrowing within the distal bilateral ACAs. There is also mild to moderate multifocal narrowing seen within the bilateral M1 segments without occlusion. The aortic arch and proximal great vessels are widely patent. Mild to moderate narrowing at the origins of the bilateral vertebral arteries. There is also focal area of moderate to severe narrowing within the proximal left vertebral artery at the C7 level best seen on image 134. There is mild multifocal narrowing at the distal vertebral arteries at the C1 level. Mild atherosclerotic plaque at the bilateral carotid bifurcations. However, no significant stenosis or occlusion within the bilateral common or internal carotid arteries. There is a 4 mm penetrating ulcer at the proximal left subclavian artery. IMPRESSION: 1. Occlusion of the basilar artery with diffuse moderate to severe thinning of the bilateral medical clerical assistant. These are only faintly visualized on this study likely due to the occluded basilar artery. 2. Multifocal narrowing seen throughout the intracranial internal carotid arteries, bilateral ACAs, and bilateral MCA's without occlusion. 3. Multifocal narrowing within the bilateral cervical vertebral arteries as described above. 4. No significant stenosis or occlusion within the bilateral common or internal carotid arteries. 5. A 4 mm penetrating ulcer at the proximal left subclavian artery. ACT 112: Negative or not required by law. Electronically signed by: Roland Jasso M.D. 08/20/2020 8:37 AM Dictated: 08/20/20827Transcribed: 08/20/20827 [facility], [id number] CT Scan Report Patient: ISIDRA BRODERICK Date: 08/19/20#: [id number]: 105 [facility] ID:[id number]: Date: 1945[facility] Zip: [place] [address]Whs: 74Location: 2SSex: FRoom/Bed: [id number] Phy: Cira Mayer D.O.Diagnosis: confusion, AMSPri Phy: PCP,NOService Date: 08/19/20Fam Phy:Interpreting Phy: Roland Jasso MDAdmit Phy: Cira Mayer D.O. Ordering Phy: Boone Key MD cc: ~ HEAD & NECK CTA HISTORY: Confusion. Stroke Like Symptoms TECHNIQUE: Multiaxial CT images of the head were performed following the intravenous administration of contrast to evaluate the major cerebral vessels. Multiaxial CT images of the neck were also performed following the intravenous administration of contrast to evaluate the major cervical vessels. Maximum intensity projection images were also obtained. A dose lowering technique was utilized adhering to the principles of ALARA. COMPARISON: None. FINDINGS: There is mild to moderate multifocal narrowing within the distal vertebral arteries. There is occlusion of the basilar artery the bilateral medical clerical assistant are only faintly visualized and demonstrate diffuse thinning. The major dural venous sinuses appear patent. There is moderate to severe multifocal narrowing within the bilateral intracranial internal carotid arteries due to the atherosclerotic plaque. There is mild multifocal narrowing within the distal bilateral ACAs. There is also mild to moderate multifocal narrowing seen within the bilateral M1 segments without occlusion. The aortic arch and proximal great vessels are widely patent. Mild to moderate narrowing at the origins of the bilateral vertebral arteries. There is also focal area of moderate to severe narrowing within the proximal left vertebral artery at the C7 level best seen on image 134. There is mild multifocal narrowing at the distal vertebral arteries at the C1 level. Mild atherosclerotic plaque at the bilateral carotid bifurcations. However, no significant stenosis or occlusion within the bilateral common or internal carotid arteries. There is a 4 mm penetrating ulcer at the proximal left subclavian artery. IMPRESSION: 1. Occlusion of the basilar artery with diffuse moderate to severe thinning of the bilateral medical clerical assistant. These are only faintly visualized on this study likely due to the occluded basilar artery. 2. Multifocal narrowing seen throughout the intracranial internal carotid arteries, bilateral ACAs, and bilateral MCA's without occlusion. 3. Multifocal narrowing within the bilateral cervical vertebral arteries as described above. 4. No significant stenosis or occlusion within the bilateral common or internal carotid arteries. 5. A 4 mm penetrating ulcer at the proximal left subclavian artery. ACT 112: Negative or not required by law. Electronically signed by: Roland Jasso M.D. 08/20/2020 8:37 AM Dictated: 08/20/20827Transcribed: 08/20/20827 [facility], [id number] CT Scan Report Patient: ISIDRA BRODERICK Date: 08/19/20#: [id number]: 105 [facility] ID:[id number]: [facility] Zip: [place], [place] [address]Atl: 74Location: 2SSex: FRoom/Bed: [id number] Phy: Cira Mayer D.O.Diagnosis: confusion, AMSPri Phy: PCP,NOService Date: 08/19/20Fam Phy:Interpreting Phy: Roland Jasso MDAdmit Phy: Cira Mayer D.O. Ordering Phy: Boone Key MD cc: ~ HEAD CT NONCONTRAST CT DOSE: 1212.86 mGy.cm HISTORY: Altered mental status. TECHNIQUE: Multiaxial CT images of the head were performed without the use of intravenous contrast. Automated exposure control was utilized for this study. A dose lowering technique was utilized adhering to the principles of ALARA. Comparison: None. Findings: The paranasal sinuses and mastoid air cells are clear. The calvarium and skull base are intact. There is no mass, hematoma, midline shift, acute infarct. White matter hypodensity is nonspecific but suggestive of microvascular ischemic change. The ventricles and sulci demonstrate mild age-related invol utional changes. Old small left parietal infarct. There are also focal area of encephalomalacia within the cerebellar hemispheres consistent with old infarcts. No definite acute infarct identified. Impression: No acute intracranial abnormality. Old infarcts as described above. ACT 112: Negative or not required by law. Electronically signed by: Roland Jasso M.D. 08/20/2020 7:53 AM Dictated: 08/20/20749Transcribed: 08/20/20749 Consultation(s): hospitalist I have personally spent greater than 30 minutes of critical care time in the direct management of this patient. This includes bedside care, interpretation of diagnostic studies, and testing, discussion with consultants, patient, and family members, and other required patient management activities. This 30 minutes is in excess of all separately billable procedures. Past Med/Surg History Medical History CAD (coronary artery disease) Diabetes Hypertension Stroke 2002, no residual deficits Surgical History No significant past surgical history Family History Other Coronary heart disease Hypertension Social History Smoking Status: Never smoker Hx Alcohol Use: No Hx Substance Use: No Preferred Language: [place] Leonean Communication Ability: Impaired Beliefs That Will Affect Care: Latter-Day Latter-Day Beliefs: Refusing care "It's in God's hands" Current Living Situation: Alone Other Information That Helps Us Care for You: No Feels Safe at Home: Yes Safety Concerns: Feels Safe At This Time Assistive Devices: Walker Allergies Allergies Allergy/AdvReac Type Severity Reaction Status Date / Time aspirin [From Bufferin] Allergy Unknown Verified 08/19/20 23:07 calcium carbonate Allergy Unknown Verified 08/19/20 23:07 [From Bufferin] magnesium [From Bufferin] Allergy Unknown Verified 08/19/20 23:07 Penicillins Allergy Unknown Verified 08/19/20 23:07 Home Meds Home Medications Medication Instructions Recorded Confirmed aspirin 325 mg PO TID 08/19/20 08/19/20 Results & Data (ED) Vital Signs Vital Signs - 24 hr 08/19/20 20:33 08/19/20 20:38 08/19/20 20:49 Temperature 36.8 C Temperature Source Oral Pulse Rate 98 H 86 87 Pulse Rate [Right Finger] Pulse Rate from SpO2 Sensor Respiratory Rate 18 21 22 Blood Pressure 209/121 H 221/144 H Blood Pressure [Left Arm] Blood Pressure Mean 150 169 Blood Pressure Mean [Left Arm] Pulse Oximetry 95 Oxygen Delivery Method Room Air Sepsis Recent Fever Within 48 Hours No Sepsis New/Unexplained Change in Mental Status No Sepsis Action Taken by Nursing No Action Required 08/19/20 20:50 08/19/20 20:52 08/19/20 21:00 Temperature Temperature Source Pulse Rate 86 85 83 Pulse Rate [Right Finger] Pulse Rate from SpO2 Sensor 83 Respiratory Rate 22 18 22 Blood Pressure 204/94 H Blood Pressure [Left Arm] Blood Pressure Mean 130 Blood Pressure Mean [Left Arm] Pulse Oximetry 95 97 Oxygen Delivery Method Room Air Sepsis Recent Fever Within 48 Hours Sepsis New/Unexplained Change in Mental Status Sepsis Action Taken by Nursing 08/19/20 21:12 08/19/20 21:13 08/19/20 21:15 Temperature Temperature Source Pulse Rate 80 79 Pulse Rate [Right Finger] 73 Pulse Rate from SpO2 Sensor 78 80 Respiratory Rate 16 15 18 Blood Pressure 176/86 H Blood Pressure [Left Arm] 176/86 H Blood Pressure Mean 116 Blood Pressure Mean [Left Arm] 116 Pulse Oximetry 98 100 100 Oxygen Delivery Method Sepsis Recent Fever Within 48 Hours Sepsis New/Unexplained Change in Mental Status Sepsis Action Taken by Nursing 08/19/20 21:30 08/19/20 21:31 08/19/20 21:38 Temperature Temperature Source Pulse Rate 74 73 73 Pulse Rate [Right Finger] Pulse Rate from SpO2 Sensor 73 73 73 Respiratory Rate 17 19 17 Blood Pressure 214/104 H 221/93 H Blood Pressure [Left Arm] Blood Pressure Mean 140 135 Blood Pressure Mean [Left Arm] Pulse Oximetry 100 98 100 Oxygen Delivery Method Sepsis Recent Fever Within 48 Hours Sepsis New/Unexplained Change in Mental Status Sepsis Action Taken by Nursing 08/19/20 22:00 08/19/20 22:02 08/19/20 22:04 Temperature Temperature Source Pulse Rate 77 69 Pulse Rate [Right Finger] 74 Pulse Rate from SpO2 Sensor 70 Respiratory Rate 18 16 18 Blood Pressure 192/80 H Blood Pressure [Left Arm] 192/80 H Blood Pressure Mean 117 Blood Pressure Mean [Left Arm] 117 Pulse Oximetry 98 99 Oxygen Delivery Method Sepsis Recent Fever Within 48 Hours Sepsis New/Unexplained Change in Mental Status Sepsis Action Taken by Nursing 08/19/20 22:10 08/19/20 22:20 08/19/20 22:30 Temperature Temperature Source Pulse Rate 72 74 77 Pulse Rate [Right Finger] Pulse Rate from SpO2 Sensor 72 74 79 Respiratory Rate 24 18 13 Blood Pressure 168/66 H Blood Pressure [Left Arm] Blood Pressure Mean 100 Blood Pressure Mean [Left Arm] Pulse Oximetry 100 100 100 Oxygen Delivery Method Sepsis Recent Fever Within 48 Hours Sepsis New/Unexplained Change in Mental Status Sepsis Action Taken by Nursing 08/19/20 22:40 08/19/20 23:00 08/19/20 23:30 Temperature Temperature Source Pulse Rate 84 81 80 Pulse Rate [Right Finger] Pulse Rate from SpO2 Sensor 84 80 81 Respiratory Rate 18 18 17 Blood Pressure 154/79 H 143/89 H Blood Pressure [Left Arm] Blood Pressure Mean 104 107 Blood Pressure Mean [Left Arm] Pulse Oximetry 98 99 97 Oxygen Delivery Method Sepsis Recent Fever Within 48 Hours Sepsis New/Unexplained Change in Mental Status Sepsis Action Taken by Nursing 08/19/20 23:45 Temperature Temperature Source Pulse Rate 80 Pulse Rate [Right Finger] Pulse Rate from SpO2 Sensor 82 Respiratory Rate 17 Blood Pressure Blood Pressure [Left Arm] Blood Pressure Mean Blood Pressure Mean [Left Arm] Pulse Oximetry 100 Oxygen Delivery Method Sepsis Recent Fever Within 48 Hours Sepsis New/Unexplained Change in Mental Status Sepsis Action Taken by Nursing Laboratory Data Result diagrams: 08/20/20 06:39 08/21/20 06:31 Lab Results 08/19/20 08/19/20 08/19/20 Range/Units 20:45 20:45 20:50 WBC 7.60 (4.8-10.8) K/uL RBC 4.36 (4.2-5.4) M/uL Hgb 13.9 (12.0-16.0) g/dL POC Hgb (12.0-16.0) g/dl Hct 41.3 (37-47) % POC Hct (37-47) % MCV 94.7 (80-100) fL MCH 31.9 (25-34) pg MCHC 33.7 (32-36) g/dL RDW Std Deviation 53.0 H (36.4-46.3) fL RDW Coeff of Gerry 15.2 H (11.5-14.5) % Plt Count 258 (130-400) K/uL MPV 11.2 H (7.4-10.4) fL Immature Gran % (Auto) 0.4 % Neut % (Auto) 55.6 % Lymph % (Auto) 32.4 % [place] % (Auto) 10.0 % Eos % (Auto) 1.3 % Baso % (Auto) 0.3 % Neut # (Auto) 4.23 (1.4-6.5) K/uL Lymph # (Auto) 2.46 (1.2-3.4) K/uL [place] # (Auto) 0.76 H (0.11-0.59) K/uL Eos # (Auto) 0.10 (0-0.5) K/uL Baso # (Auto) 0.02 (0-0.2) K/uL Immature Gran # (Auto) 0.03 H (0.00-0.02) K/uL POC Sodium (135-144) mmol/L Sodium 141 (136-145) mmol/L POC Potassium (3.3-5.0) mmol/L Potassium 4.2 (3.5-5.1) mmol/L POC Chloride (101-112) mmol/L Chloride 108 H (98-107) mmol/L Carbon Dioxide 28 (21-32) mmol/L POC Total CO2 (24-31) mmol/L Anion Gap 5.0 (3-11) POC Anion Gap (16-25) mmol/L POC BUN (7-18) mg/dl BUN 18 (7-18) mg/dl Creatinine 1.43 H (0.6-1.2) mg/dl POC Creatinine (0.6-1.3) mg/dl Est Cr Clr Drug Dosing Not Reportable Est GFR ( Amer) 41.7 Est GFR (Non-Af Amer) 36.0 BUN/Creatinine Ratio 12.3 (10-20) Glucose 132 H (70-99) mg/dl POC Glucose (other) (70-99) mg/dl Calcium 9.3 (8.5-10.1) mg/dl POC Ioniz Calcium Quoc (1.12-1.32) mmol/l Phosphorus 2.4 L (2.5-4.9) mg/dl Magnesium 2.3 (1.8-2.4) mg/dl Total Bilirubin 0.2 (0.2-1) mg/dl AST 12 L (15-37) U/L ALT 15 (12-78) U/L Alkaline Phosphatase 98 (45-117) U/L Total Creatine Kinase 92 (26-192) U/L CK-MB (CK-2) 1.3 (0.5-3.6) ng/ml CK/CKMB % Calc 1.4 (0-3.0) Troponin I < 0.015 (0-0.045) ng/ml Total Protein 7.9 (6.4-8.2) gm/dl Albumin 3.2 L (3.4-5.0) gm/dl Globulin 4.7 H (2.5-4.0) gm/dl Albumin/Globulin Ratio 0.7 L (0.9-2) TSH 3.710 (0.300-4.500) uIu/ml Ethyl Alcohol mg/dL (0-3) mg/dl COVID-19 Eval [facility] SARS-CoV-2, RNA, NAAT (NEGATIVE) 08/19/20 08/19/20 08/19/20 Range/Units 20:50 20:54 21:19 WBC (4.8-10.8) K/uL RBC (4.2-5.4) M/uL Hgb (12.0-16.0) g/dL POC Hgb 13.6 (12.0-16.0) g/dl Hct (37-47) % POC Hct 40 (37-47) % MCV (80-100) fL MCH (25-34) pg MCHC (32-36) g/dL RDW Std Deviation (36.4-46.3) fL RDW Coeff of Gerry (11.5-14.5) % Plt Count (130-400) K/uL MPV (7.4-10.4) fL Immature Gran % (Auto) % Neut % (Auto) % Lymph % (Auto) % [place] % (Auto) % Eos % (Auto) % Baso % (Auto) % Neut # (Auto) (1.4-6.5) K/uL Lymph # (Auto) (1.2-3.4) K/uL [place] # (Auto) (0.11-0.59) K/uL Eos # (Auto) (0-0.5) K/uL Baso # (Auto) (0-0.2) K/uL Immature Gran # (Auto) (0.00-0.02) K/uL POC Sodium 139 (135-144) mmol/L Sodium (136-145) mmol/L POC Potassium 6.3 H* (3.3-5.0) mmol/L Potassium (3.5-5.1) mmol/L POC Chloride 107 (101-112) mmol/L Chloride (98-107) mmol/L Carbon Dioxide (21-32) mmol/L POC Total CO2 31 (24-31) mmol/L Anion Gap (3-11) POC Anion Gap 9.0 L (16-25) mmol/L POC BUN 27 H (7-18) mg/dl BUN (7-18) mg/dl Creatinine (0.6-1.2) mg/dl POC Creatinine 1.2 (0.6-1.3) mg/dl Est Cr Clr Drug Dosing Est GFR ( Amer) Est GFR (Non-Af Amer) BUN/Creatinine Ratio (10-20) Glucose (70-99) mg/dl POC Glucose (other) 143 H (70-99) mg/dl Calcium (8.5-10.1) mg/dl POC Ioniz Calcium Quoc 1.09 L (1.12-1.32) mmol/l Phosphorus (2.5-4.9) mg/dl Magnesium (1.8-2.4) mg/dl Total Bilirubin (0.2-1) mg/dl AST (15-37) U/L ALT (12-78) U/L Alkaline Phosphatase (45-117) U/L Total Creatine Kinase (26-192) U/L CK-MB (CK-2) (0.5-3.6) ng/ml CK/CKMB % Calc (0-3.0) Troponin I (0-0.045) ng/ml Total Protein (6.4-8.2) gm/dl Albumin (3.4-5.0) gm/dl Globulin (2.5-4.0) gm/dl Albumin/Globulin Ratio (0.9-2) TSH (0.300-4.500) uIu/ml Ethyl Alcohol mg/dL < 3.0 (0-3) mg/dl COVID-19 Eval Order SARS-CoV-2, RNA, NAAT NEGATIVE (NEGATIVE) Administered Medications Aspirin (Aspirin 81 Mg Ectab) 81 mg PO DAILY [facility] Stop: 09/19/20 08:59 Last Admin: 08/21/20 08:28 Dose: Not Given Documented by: [id number] Admin: 08/20/20 08:09 Dose: 81 mg Documented by: [id number] Clopidogrel Bisulfate (Clopidogrel Bisulfate 75 Mg Tab) 75 mg PO [facility] Stop: 09/20/20 08:59 Last Admin: 08/21/20 10:09 Dose: Not Given Documented by: [id number] Enoxaparin Sodium (Enoxaparin Inj 40 Mg/0.4 Ml Syr) 40 mg SQ [facility] Stop: 09/20/20 08:59 Last Admin: 08/21/20 08:28 Dose: Not Given Documented by: [id number] Insulin Aspart (Insulin Aspart 100 Units/Ml 3 Ml Pen) 0 units SC [facility] Stop: 09/19/20 07:29 Last Admin: 08/21/20 20:40 Dose: Not Given Documented by: [id number] Cosigned by: [id number] Admin: 08/21/20 17:32 Dose: Not Given Documented by: [id number] Admin: 08/21/20 12:14 Dose: Not Given Documented by: [id number] Admin: 08/21/20 08:27 Dose: Not Given Documented by: [id number] Admin: 08/20/20 21:42 Dose: Not Given Documented by: [id number] Cosigned by: [id number] Admin: 08/20/20 17:36 Dose: 4 units Documented by: [id number] Cosigned by: [id number] Admin: 08/20/20 11:57 Dose: 4 units Documented by: [id number] Cosigned by: [id number] Admin: 08/20/20 08:54 Dose: Not Given Documented by: [id number] Metoprolol Succinate (Metoprolol Succ 25mg Ext Rel Tab) 25 mg PO [facility] Stop: 09/20/20 08:59 Last Admin: 08/21/20 08:28 Dose: Not Given Documented by: [id number] Quetiapine Fumarate (Quetiapine Fumarate 25 Mg Tablet) 12.5 mg PO [facility] Stop: 09/19/20 20:59 Last Admin: 08/21/20 20:41 Dose: Not Given Documented by: [id number] Admin: 08/20/20 23:58 Dose: 12.5 mg Documented by: [id number] Discontinued Medications Haloperidol (Haloperidol 5 Mg Tab) 5 mg PO NOW STA Stop: 08/19/20 20:42 Last Admin: 08/19/20 21:00 Dose: 5 mg Documented by: [id number] Haloperidol Lactate (Haloperidol Lactate 5 Mg/Ml 1 Ml Vial) 5 mg IV NOW STA Stop: 08/21/20 13:28 Last Admin: 08/21/20 13:35 Dose: 5 mg Documented by: [id number] Haloperidol Lactate (Haloperidol Lactate 5 Mg/Ml 1 Ml Vial) Confirm Administered Dose 5 mg .ROUTE .STK-MED ONE Stop: 08/21/20 13:28 Last Admin: 08/21/20 13:35 Dose: Not Given Documented by: [id number] Nicardipine HCl 25 mg/ Sodium (Chloride) 250 mls @ 50 mls/hr IV .Q5H PRN; Protocol PRN Reason: SBP above 185 or DBP above 110 Stop: 09/18/20 20:34 Last Titration: 08/20/20 02:05 Dose: 0 mg/hr, 0 mls/hr Documented by: [id number] Titration: 08/20/20 00:29 Dose: 0 mg/hr, 0 mls/hr Documented by: [id number] Titration: 08/19/20 23:39 Dose: 2.5 mg/hr, 25 mls/hr Documented by: [id number] Admin: 08/19/20 22:14 Dose: 5 mg/hr, 50 mls/hr Documented by: [id number] Cosigned by: [id number] Sodium Chloride (Nss 1000ml) 1,000 mls @ 999 mls/hr IV .Q1H1M ONE Stop: 08/19/20 21:57 Last Infusion: 08/19/20 23:31 Dose: 0 mls/hr Documented by: [id number] Admin: 08/19/20 21:15 Dose: 999 mls/hr Documented by: [id number] Lactated Ringer's (Lr) 1,000 mls @ 80 mls/hr IV .[id number] DAMION Stop: 08/21/20 02:28 Last Infusion: 08/21/20 19:09 Dose: 0 mls/hr Documented by: [id number] Admin: 08/20/20 16:58 Dose: 80 mls/hr Documented by: [id number] Infusion: 08/20/20 14:50 Dose: 80 mls/hr Documented by: [id number] Admin: 08/20/20 02:20 Dose: 80 mls/hr Documented by: [id number] Ioversol (Optiray 320 125ml) 120 ml IV ONCE ONE Stop: 08/19/20 21:44 Last Admin: 08/19/20 21:44 Dose: 120 ml Documented by: [id number] Labetalol HCl (Labetalol Hcl Iv 5 Mg/Ml 20ml) 10 mg IV NOW STA Stop: 08/20/20 01:05 Last Admin: 08/20/20 02:20 Dose: 10 mg Documented by: [id number] Cosigned by: [id number] Labetalol HCl (Labetalol Hcl 100 Mg Tab) 100 mg PO NOW ONE Stop: 08/21/20 18:26 Last Admin: 08/21/20 20:40 Dose: Not Given Documented by: [id number] Lorazepam (Lorazepam 1 Mg Tab) 1 mg SL NOW STA Stop: 08/19/20 20:42 Last Admin: 08/19/20 21:01 Dose: Not Given Documented by: [id number] Discharge Plan Visit Data Chief Complaint: Confusion Stated Complaint: CONFUSION, FALL, HTN ED Provider: [place] Discharge Problem: 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, Altered mental status, Hypertension, Diabetes Patient Disposition: Admitted As Inpatient Discharge Instructions Interventions: ED Discharge Assessment Last Done: 08/20/20 00:59 Discharge Problem: Altered mental status Qualifiers: Altered mental status type: unspecified Qualified Code(s): R41.82 - Altered mental status, unspecified Hypertension Qualifiers: Hypertension type: unspecified Qualified Code(s): I10 - Essential (primary) hypertension Diabetes Qualifiers: Diabetes mellitus type: other specified (including SAMINA) Diabetes mellitus snf insulin use: unspecified snf insulin use status Diabetes mellitus complication status: with other specified complication Qualified Code(s): E13.69 - Other specified diabetes mellitus with other specified complication
[2020-08-20] MEDS: QUEtiapine FUMARATE 25 MG TABLET PO SCH (23:58)
[2020-08-21 07:09] LABS: Estimated Average Glucose 180 mg/dl; Hemoglobin A1C 7.9 % (4.5-5.6)
[2020-08-21 07:51] LABS: BUN Creatinine Ratio 10.7 (10-20); Calcium 8.7 mg/dl (8.5-10.1); Creatinine Clr Calc Pharmacy 42.7 ml/min; Est GFR (African American) 52.1; Est GFR (Non-African American) 44.9; Potassium 3.9 mmol/L (3.5-5.1)
[2020-08-21] MEDS: INSULIN ASPART 100 UNITS/ML 3 ML PEN SC SCH ×4 (08:27→20:40)
[2020-08-21] MEDS: ASPIRIN 81 MG ECTAB PO SCH (08:28)
[2020-08-21] MEDS: ENOXAPARIN INJ 40 MG/0.4 ML SYR SQ SCH (08:28)
[2020-08-21] MEDS: METOPROLOL SUCC 25MG EXT REL TAB PO SCH (08:28)
--- NOTE | 2020-08-21 08:56 | Hospitalist Progress Note ---
Date of Service August 21, 2020 Assessment & Plan (1) Hypertensive urgency: resolved. briefly was on nicardipine drip in ER then quickly weaned off. was not taking any meds at home for HTN -- son reports had been on metoprolol in the past but she had taken her self off of it. Discussed with Leif 08/21 and mother quickly deteriorating since move from [place], [place] was apparently trying to control her BPs "naturally." Has been refusing PO metoprolol as well as aspirin this morning. Ordered Plavix per Neuro recommendations -- also refusing and continues to refuse marked elevation in BPs may have been worsened by severe agitation requiring haldol/ativan --> BPs elevated to 199/96 today and patient became agitated requiring IM Haldol Continued conversations regarding need for BP control -- will discuss again in AM PT/OT consults pending as patient son with plans for [facility] vs SNF for pt at d/c (2) Altered mental status: Leif, the pt's son, reported her mother is now at baseline after haldol/ativan. Was ok this morning but as BP elevated, she became more confused as above Cause of altered mental status yesterday at presentation - hypertensive encephalopathy? new stroke process? other? I agree w/ Dr Kent that obtaining an MRI head would be difficult if not impossible. We did attempt to send her down for MRI - she flat out refused to get it. Refusing repeat CT no signs on physical exam of seizure (tongue bite prajapati, etc) but can't rule it out. defer on EEG for now, however. (3) Fall: unknown details - unwitnessed. found on floor in apartment. CPK wnl. PT, OT evals. not safe to live alone in apartment --> likely placement. fortunately no apparent injuries from the fall. (4) Chronic cerebral ischemia: CTA and CT head with old strokes, extensive vascular disease/stenoses/plaque build-up, etc. Son confirms prior TIAs and "mini-strokes" while she was living in [place] years ago. 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 Age indeterminant. Likely chronic occlusion rather than acute. Continue asa when patient agreeable Consider statin. (8) Diabetes: T2DM suspected. A1c 7.9 -- refusing treatment as well as insulin while inpatient (9) Hypertension: With HTN urgency at presentation -- resolved initially Refused AM metoprolol --> BP had been 186/66 and patient lucid As BP elevated ti 199/96 patient with confusion/agitation as above (10) CAD (coronary artery disease): 2014 - cardiac catheterization - nonobstructive CAD found. Performed in [facility]. Continue ASA, change dose to 81mg daily Consider statin given LDL and her prior strokes, CAD, PAD, etc. (11) History of mood disorder: depression with psychosis - 1991 - hospitalized for such; required antipsychotics then, SSRIs, etc. TSH wnl B1 pending B12 wnl 397 added seroquel 12.5mg HS given high risk of sundowning / delirium. and to help with paranoia (12) DVT prophylaxis: lovenox 40mg daily sonLeif, extensively updated today dispo planning - dementia unit at SNF or [facility]?? Admission and Anticipated Discharge Date Admission Date: August 19, 2020 Supervising Physician Co-Signing Physician Notes ELEUTERIO Supervision Note: I did not personally see or examine the patient today, but I verified all saldaña points of ELEUTERIO Larkin's assessment and plan with the following exceptions/additions: None Subjective Patient evaluated this morning. Lengthy conversation regarding elevated BP -- patient states she has been on diet in past (confirmed DASH diet with son Leif on phone) and had discontinued her blood pressure medications. Discussed plavix over aspirin and she states aspirin is the only thing that has helped headaches in the past. Discussed elevated BP likely causing headache -- she denied headache this morning and decline both aspirin and plavix during attempts by nursing. Discussed trying low dose BB and seeing how she tolerates while in the hospital. She continues to decline and acknowledged risks. She notes "I will have a stroke" and "I will not see my grandbabies". Multiple attempts to convince her of need for medications to help control BP and prevent complications and strokes so that she would be able to see her grandchildren grow up. No fevers, chills, chest pain, shortness of breath, abdominal pain, nausea or vomiting at this time. Discussed with son Leif on the phone with patient in room. Continued need for medications expressed but agreeable to honor her wishes. This afternoon, patient became agitated and aggressive with staff and grady nieto was called. Unable to coax out of bathroom and stated "You're talking to people in the [place] don't know what's going". Spoke with son Leif and administered Haldol. He states his mother got both Haldolol in ER and ativan in EMS yesterday and that did seem to help. He was ok with Haldol being ordered. Moving roommate due to agitation and Haldol given IM. Patient back in bed at this time. Haldol ordered prn moving forward. Review of Systems Review of Systems: All systems reviewed & are unremarkable except as noted in HPI & below Physical Exam Constitutional: well developed, well nourished and + obese; no acute distress Eyes: + anicteric sclerae and PERRL ENMT: Mouth: no tongue abnormality (anterior tongue w/o bite prajapati, thrush, etc.) and oral mucous membranes not dry Neck: normal visual inspection and trachea midline Respiratory: normal respiratory effort, lungs clear to auscultation Cardiovascular: Rate/Rhythm: regular rate and regular rhythm Heart Sounds: normal S1 and normal S2 Vessels: posterior tibial pulses present and dorsalis pedis pulses present; no JVD Extremities: no edema Gastrointestinal (Abdomen): normal bowel sounds, soft, nontender, no hepatosplenomegaly Inspection/Auscultation: + visible herniation (umbilical - reducible; and ventral hernia superior to the umbilicus ) Musculoskeletal: no cyanosis or clubbing, extremities motor strength 5/5 Head/Neck/Chest: normocephalic and head atraumatic Skin: normal turgor; no rashes Neurologic: moves all extremities Psychiatric: Orientation: alert, oriented to person and oriented to place; + not oriented to time Results & Data Results & Data ([facility]) Vital Signs (Past 12 Hours) Vital Signs Temp Pulse Pulse Resp BP Pulse Ox 08/21/20 07:29 36.6 C 73 19 186/66 H 99 08/21/20 00:00 77 08/20/20 22:42 72 Laboratory Results 08/21/20 08/21/20 08/21/20 Range/Units 07:27 06:31 06:31 Sodium (136-145) mmol/L Potassium (3.5-5.1) mmol/L Chloride (98-107) mmol/L Carbon Dioxide (21-32) mmol/L Anion Gap (3-11) BUN (7-18) mg/dl Creatinine (0.6-1.2) mg/dl Est Cr Clr Drug Dosing ml/min Est GFR ( Amer) Est GFR (Non-Af Amer) BUN/Creatinine Ratio (10-20) Glucose (70-99) mg/dl POC Glucose 126 H (70-99) mg/dl Estimat Average Glucose mg/dl Hemoglobin A1c (4.5-5.6) % Calcium (8.5-10.1) mg/dl Whole d Vitamin B1 Pending Vitamin B12 Pending 08/21/20 08/20/20 08/20/20 Range/Units 06:31 20:56 16:13 Sodium 140 (136-145) mmol/L Potassium 3.9 (3.5-5.1) mmol/L Chloride 108 H (98-107) mmol/L Carbon Dioxide 26 (21-32) mmol/L Anion Gap 6.0 (3-11) BUN 13 (7-18) mg/dl Creatinine 1.19 (0.6-1.2) mg/dl Est Cr Clr Drug Dosing 42.7 ml/min Est GFR ( Amer) 52.1 Est GFR (Non-Af Amer) 44.9 BUN/Creatinine Ratio 10.7 (10-20) Glucose 124 H (70-99) mg/dl POC Glucose 154 H 210 H (70-99) mg/dl Estimat Average Glucose mg/dl Hemoglobin A1c (4.5-5.6) % Calcium 8.7 (8.5-10.1) mg/dl Whole Bld Vitamin B1 Vitamin B12 08/20/20 08/20/20 Range/Units 11:48 06:39 Sodium (136-145) mmol/L Potassium (3.5-5.1) mmol/L Chloride (98-107) mmol/L Carbon Dioxide (21-32) mmol/L Anion Gap (3-11) BUN (7-18) mg/dl Creatinine (0.6-1.2) mg/dl Est Cr Clr Drug Dosing ml/min Est GFR ( Amer) Est GFR (Non-Af Amer) BUN/Creatinine Ratio (10-20) Glucose (70-99) mg/dl POC Glucose 149 H (70-99) mg/dl Estimat Average Glucose 180 mg/dl Hemoglobin A1c 7.9 H (4.5-5.6) % Calcium (8.5-10.1) mg/dl Whole Bld Vitamin B1 Vitamin B12 PG Care Time/CCT Total # of Minutes Spent Total Time Spent with Patient: Total time spent is greater than 50% in coordi nation of care (as documented) at patient's floor/unit and/or counseling patient: Prolonged Care Time Prolonged Care Time: Yes Total Prolonged Care Time: 60 additional time at bedside, code gerson, multiple discussions with son Leif Coding Level of Care Code 94739 Subseq Hosp Care Lvl 3 (25 - SIGNIFICANT, SEPARATELY IDENTIFIABLE ) Diagnoses Hypertensive urgency I16.0 Altered mental status R41.0 Altered mental status type: disorientation Fall W19.XXXD Encounter type: subsequent encounter Chronic cerebral ischemia I67.82 Dementia F01.50 Dementia behavioral disturbance: without behavioral disturbance Dementia type: vascular dementia Recurrent strokes I63.9 Basilar artery occlusion I65.1 Diabetes E11.9 Diabetes mellitus complication status: without complication Diabetes mellitus penitentiary insulin use: without superintendent [employer] use Diabetes mellitus type: type 2 Hypertension I10 Hypertension type: essential hypertension CAD (coronary artery disease) I25.10 Associated angina: without angina Coronary Disease-Associated Artery/Lesion type: [place] artery [place] vs. transplanted heart: [place] heart History of mood disorder Z86.59 DVT prophylaxis Z29.9 Additional Codes Prolonged Care Time - Prolonged Care Time: Yes ([id number]) (1) Diabetes Diabetes mellitus complication status: without complication Diabetes mellitus superintendent [employer] insulin use: without penitentiary use Diabetes mellitus type: type 2 Qualified Code(s): E11.9 - Type 2 diabetes mellitus without complications (2) CAD (coronary artery disease) Associated angina: without angina Coronary Disease-Associated Artery/Lesion type: [place] artery [place] vs. transplanted heart: [place] heart Qualified Code(s): I25.10 - Atherosclerotic heart disease of [place] coronary artery withou t angina pectoris (3) Dementia Dementia behavioral disturbance: without behavioral disturbance Dementia type: vascular dementia Qualified Code(s): F01.50 - Vascular dementia without behavioral disturbance (4) Altered mental status Altered mental status type: disorientation Qualified Code(s): R41.0 - Disorientation, unspecified (5) Hypertension Hypertension type: essential hypertension Qualified Code(s): I10 - Essential (primary) hypertension (6) Fall Encounter type: subsequent encounter Qualified Code(s): W19.XXXD - Unspecified fall, subsequent encounter
[2020-08-21] MEDS ORDERED: CLOPIDOGREL BISULFATE 75 MG TAB PO SCH (09:00)
[2020-08-21] MEDS ORDERED: HALOPERIDOL LACTATE 5 MG/ML 1 ML VIAL ONE (13:27)
[2020-08-21] MEDS ORDERED: HALOPERIDOL LACTATE 5 MG/ML 1 ML VIAL IV STA (13:27)
[2020-08-21] MEDS ORDERED: HALOPERIDOL LACTATE 5 MG/ML 1 ML VIAL IV PRN (13:28)
[2020-08-21] MEDS ORDERED: LORazepam 0.25 MG/0.5 ML VIAL IV PRN (16:16)
[2020-08-21] MEDS ORDERED: LABETALOL HCL 100 MG TAB PO ONE (18:25)
[2020-08-21] MEDS: QUEtiapine FUMARATE 25 MG TABLET PO SCH (20:41)
--- NOTE | 2020-08-22 08:06 | Hospitalist Progress Note ---
Date of Service August 22, 2020 Assessment & Plan (1) Hypertensive urgency: resolved -- did recur on 08/21 afternoon/evening with code nieto and required dose of Haldol. No further agitation/aggression requiring haldol or ativan was not taking any meds at home for HTN -- son reports had been on metoprolol in the past but she had taken her self off of it. Discussed with Leif 08/21 and mother quickly deteriorating since move from [place], MD was apparently trying to control her BPs "naturally." * Previously was refusing all medications (see notes from 08/21) * Today she accepted dose of Metoprolol 25mg as well as ASA 81mg (would prefer not to start Plavix but to continue discussion) * BP labile but did improve to 110/72 this morning and fluctuating this afternoon 167/89 and currently 159/73 * On telemetry -- had 2.9 second pause early this morning. IVCD. Adan down to 35 this afternoon. * No syncope or lightheaded/dizziness. Initial pause during sleep however adan to 30-40s this afternoon after I stopped back to check on patient/update son at bedside * --> Decreasing metoprolol to 12.5mg daily (she does not want to take multiple times daily so would avoid tartrate BID, she also declined considerations for other BP medications like HCTZ at this time) * CM following -- patient to d/c to [facility]. [facility] planned for tomorrow (2) Altered mental status: * Leif, the pt's son, reported her mother is now at baseline after haldol/ativan. * Cause of altered mental status at presentation - hypertensive encephalopathy? new stroke process? other? * HEAD CT NONCONTRAST -- NO ACUTE abn, old infarcts as described --> old small LEFT parietal infarct, focal area of encephalomalacia w/i cerebellar hemispheres c/w old infarcts. No definitive acute infarct identified * CTA Head/Neck IMPRESSION: 1. Occlusion of the basilar artery with diffuse moderate to severe thinning of the bilateral manager social services. These are only faintly visualized on this study likely due to the occluded basilar artery. 2. Multifocal narrowing seen throughout the intracranial internal carotid arteries, bilateral ACAs, and bilateral MCA's without occlusion. 3. Multifocal narrowing within the bilateral cervical vertebral arteries as described above. 4. No significant stenosis or occlusion within the bilateral common or internal carotid arteries. 5. 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 Will mention in AM. * Neurology consulted -- MRI difficult if not impossible and patient declined further imaging --> flat out refused. Refused repeat CT as well. * No s/sx seizure on exam in the way of tongue bite prajapati/etc but cannot def r/o. Deferring on EEG given patient declining further work-up (3) Fall: * unknown details - unwitnessed. * found on floor in apartment. with water running to restaurant below * CPK wnl. * PT, OT evals -- at baseline. no room for skilled * [facility] at d/c --> plans for [facility] tomorrow fortunately no apparent injuries from the fall. (4) Chronic cerebral ischemia: * CTA and CT head with old strokes, extensive vascular disease/stenoses/plaque build-up, etc. * Son confirms prior TIAs and "mini-strokes" while she was living in [place] years ago. * Cont asa 81mg daily for secondary prevention --> recs from neuro for Plavix but patient declined. * --> She agreed to continue ASA 81mg daily. * Consider high-intensity statin but uncertain benefits are there given her advanced dementia --> DECLINED --> would further discuss prior to d/c if she becomes agreeable to additional medication (5) Dementia: * likely of vascular type given her imaging studies * appreciate neuro recs * B1 pending (6) Recurrent strokes: * as seen on CT head (7) Basilar artery occlusion: * Patient found to have basilar artery occlusion on CTA head. Age indeterminant. * Likely chronic occlusion rather than acute. * Continue asa * Consider statin -- see above (8) Diabetes: * T2DM suspected. * A1c 7.9 -- has been letting them give her insulin today -- will discuss tomorrow again about starting medications but suspect she will also refuse this (9) Hypertension: * With HTN urgency at presentation -- resolved initially, again occurred 08/21 * She did agree to AM metoprolol -- BPs better, currently 159/73 however did have some bradycardia and a 2.9 second pause * Decreased dose metoprolol to 12.5mg daily * Declined other medication changes at this time * Continue to monitor (10) CAD (coronary artery disease): * 2014 - cardiac catheterization - nonobstructive CAD found. Performed in [facility] [place]. * Continue ASA, change dose to 81mg daily * Consider statin given LDL and her prior strokes, CAD, PAD, etc. 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 * TSH wnl * B1 pending * B12 wnl 397 * added seroquel 12.5mg HS given high risk of sundowning / delirium. and to help with paranoia (12) DVT prophylaxis: * lovenox 40mg daily sonLeif, updated today at bedside dispo planning - [facility] planned for tomorrow if BP stable Admission and Anticipated Discharge Date Admission Date: August 19, 2020 Supervising Physician Co-Signing Physician Notes PA Supervision Note: I did not personally see or examine the patient today, but I verified all saldaña points of ELEUTERIO Larkin's assessment and plan with the following exceptions/additions: None Subjective Patient evaluated this morning. Feeling well. No chest pain, shortness of breath, abdominal pain, n/v/d. Eating/drinking without issues. Took her morning pills -- ASA/Metoprolol and even her insulin. No reported dizziness or lightheadedness/syncope. Ambulating in the room with a walker. Telemetry with 2.9 second pause overnight and rates did dip to low of 35, currently in the 60s. Will decrease metoprolol to 12.5mg. Not interested in other agents at this time. Seen by [facility] julieta today and plans for d/c to [facility] tomorrow. Review of Systems Review of Systems: All systems reviewed & are unremarkable except as noted in HPI & below Physical Exam Physical Exam: Well developed, well nourished 74yo female sitting up in the chair, no apparent distress Eating breakfast Eyes anicteric Mucus membranes moist, trachea midline and without deviation normal respiratory effort, lung CTAB, no w/c/r RRR, no m/r/g +BS, abd nontender to palpation skin warm, dry Neurologically without focal deficits, moves all extremities, walking with walker throughout room alert and oriented to person, place, able to tell me the year but not date Results & Data Results & Data ([facility]) Vital Signs (Past 12 Hours) Vital Signs Temp Pulse Pulse Resp BP Pulse Ox 08/22/20 07:00 59 L 08/22/20 03:47 88 17 175/81 H 100 08/22/20 00:01 36.9 C 101 H 17 185/81 H 97 Laboratory Results 08/22/20 08/22/20 08/22/20 Range/Units 16:51 11:23 08:07 WBC (4.8-10.8) K/uL RBC (4.2-5.4) M/uL Hgb (12.0-16.0) g/dL Hct (37-47) % MCV (80-100) fL MCH (25-34) pg MCHC (32-36) g/dL RDW Std Deviation (36.4-46.3) fL RDW Coeff of Gerry (11.5-14.5) % Plt Count (130-400) K/uL MPV (7.4-10.4) fL Sodium 140 (136-145) mmol/L Potassium 3.8 (3.5-5.1) mmol/L Chloride 109 H (98-107) mmol/L Carbon Dioxide 26 (21-32) mmol/L Anion Gap 6.0 (3-11) BUN 12 (7-18) mg/dl Creatinine 1.15 (0.6-1.2) mg/dl Est Cr Clr Drug Dosing 44.2 ml/min Est GFR ( Amer) 54.3 Est GFR (Non-Af Amer) 46.8 BUN/Creatinine Ratio 10.8 (10-20) Glucose 160 H (70-99) mg/dl POC Glucose 141 H 144 H (70-99) mg/dl Calcium 9.3 (8.5-10.1) mg/dl 08/22/20 08/22/20 Range/Units 08:07 07:07 WBC 8.90 (4.8-10.8) K/uL RBC 4.20 (4.2-5.4) M/uL Hgb 13.3 (12.0-16.0) g/dL Hct 38.9 (37-47) % MCV 92.6 (80-100) fL MCH 31.7 (25-34) pg MCHC 34.2 (32-36) g/dL RDW Std Deviation 51.8 H (36.4-46.3) fL RDW Coeff of Gerry 15.4 H (11.5-14.5) % Plt Count 237 (130-400) K/uL MPV 10.9 H (7.4-10.4) fL Sodium (136-145) mmol/L Potassium (3.5-5.1) mmol/L Chloride (98-107) mmol/L Carbon Dioxide (21-32) mmol/L Anion Gap (3-11) BUN (7-18) mg/dl Creatinine (0.6-1.2) mg/dl Est Cr Clr Drug Dosing ml/min Est GFR ( Amer) Est GFR (Non-Af Amer) BUN/Creatinine Ratio (10-20) Glucose (70-99) mg/dl POC Glucose 143 H (70-99) mg/dl Calcium (8.5-10.1) mg/dl PG Care Time/CCT Total # of Minutes Spent Total Time Spent with Patient: Total time spent is greater than 50% in coordination of care (as documented) at patient's floor/unit and/or counseling patient: Prolonged Care Time Prolonged Care Time: Yes Total Prolonged Care Time: 65 time spent at bedside with patient, lengthy conversation about need to continue medications, obtain better BP control. repeat trip to bedside for discussion/update with son this evening Coding Level of Care Code 25406 Subseq Hosp Care Lvl 2 (25 - SIGNIFICANT, SEPARATELY IDENTIFIABLE ) Diagnoses Hypertensive urgency I16.0 Altered mental status R41.82 Altered mental status type: unspecified Fall W19.XXXD Encounter type: subsequent encounter Chronic cerebral ischemia I67.82 Dementia F01.50 Dementia behavioral disturbance: without behavioral disturbance Dementia type: vascular dementia Recurrent strokes I63.9 Basilar artery occlusion I65.1 Diabetes E13.69 Diabetes mellitus complication status: with other specified complication Diabetes mellitus terminal clerk insulin use: unspecified nursing home insulin use status Diabetes mellitus type: other specified (including SAMINA) Hypertension I10 Hypertension type: unspecified CAD (coronary artery disease) I25.10 Associated angina: without angina Coronary Disease-Associated Artery/Lesion type: [place] artery [place] vs. transplanted heart: [place] heart History of mood disorder Z86.59 DVT prophylaxis Z29.9 Additional Codes Prolonged Care Time - Prolonged Care Time: Yes ([id number]) (1) Diabetes Diabetes mellitus complication status: with other specified complication Diabetes mellitus nursing home insulin use: unspecified terminal clerk insulin use status Diabetes mellitus type: other specified (including SAMINA) Qualified Code(s): E13.69 - Other specified diabetes mellitus with other specified complication (2) CAD (coronary artery disease) Associated angina: without angina Coronary Disease-Associated Artery/Lesion type: [place] artery [place] vs. transplanted heart: [place] heart Qualified Code(s): I25.10 - Atherosclerotic heart disease of [place] coronary artery without angina pectoris (3) Dementia Dementia behavioral disturbance: without behavioral disturbance Dementia type: vascular dementia Qualified Code(s): F01.50 - Vascular dementia without behavioral disturbance (4) Altered mental status Altered mental status type: unspecified Qualified Code(s): R41.82 - Altered mental status, unspecified (5) Hypertension Hypertension type: unspecified Qualified Code(s): I10 - Essential (primary) hypertension (6) Fall Encounter type: subsequent encounter Qualified Code(s): W19.XXXD - Unspecifi ed fall, subsequent encounter
[2020-08-22 08:19] LABS: Hematocrit (blood only) 38.9 % (37-47); Hemoglobin 13.3 g/dL (12.0-16.0); Mean Corpuscular Hemoglobin 31.7 pg (25-34); Mean Corpuscular Hgb Conc 34.2 g/dL (32-36); Mean Corpuscular Volume 92.6 fL (80-100); Mean Platelet Volume 10.9 fL (7.4-10.4); Platelet Count 237 K/uL (130-400); RDW Coefficient of Variation 15.4 % (11.5-14.5); RDW Standard Deviation 51.8 fL (36.4-46.3)
[2020-08-22] MEDS: ENOXAPARIN INJ 40 MG/0.4 ML SYR SQ SCH (08:41)
[2020-08-22] MEDS: METOPROLOL SUCC 25MG EXT REL TAB PO SCH (08:41)
[2020-08-22] MEDS: ASPIRIN 81 MG ECTAB PO SCH (08:41)
[2020-08-22] MEDS: INSULIN ASPART 100 UNITS/ML 3 ML PEN SC SCH ×4 (08:44→20:44)
[2020-08-22 08:52] LABS: BUN Creatinine Ratio 10.8 (10-20); Calcium 9.3 mg/dl (8.5-10.1); Creatinine Clr Calc Pharmacy 44.2 ml/min; Est GFR (African American) 54.3; Est GFR (Non-African American) 46.8; Potassium 3.8 mmol/L (3.5-5.1)
[2020-08-22] MEDS: QUEtiapine FUMARATE 25 MG TABLET PO SCH (20:44)
--- NOTE | 2020-08-23 07:47 | Hospitalist Progress Note ---
Date of Service August 23, 2020 Assessment & Plan Admission and Anticipated Discharge Date Admission Date: August 19, 2020 PG Care Time/CCT Total # of Minutes Spent Total Time Spent with Patient: Total time spent is greater than 50% in coordination of care (as documented) at patient's floor/unit and/or counseling patient: Coding
[2020-08-23] MEDS ORDERED: METOPROLOL SUCC 25MG EXT REL TAB PO SCH (09:00)
[2020-08-23] MEDS: ASPIRIN 81 MG ECTAB PO SCH (09:28)
[2020-08-23] MEDS: ENOXAPARIN INJ 40 MG/0.4 ML SYR SQ SCH (09:28)
[2020-08-23] MEDS: INSULIN ASPART 100 UNITS/ML 3 ML PEN SC SCH ×2 (09:29→12:40)
[2020-08-23] MEDS ORDERED: ASPIRIN CHEW 324 MG PO STA (10:06)
--- NOTE | 2020-08-23 13:54 | Discharge Summary ---
Date of Service August 23, 2020 Admission HPI Per Admitting Provider Lashell Campbell is a pleasant 74yo AA female presenting with AMS. Patient lives alone in an apartment above a restaurant in [place]. The restaurant noticed water was leaking from the ceiling upstairs. Police were called and found the patient on the floor with water all over the floor. She was confused and combative. She was administered Ativan en route to [facility]. On arrival patient found to be afebrile, HTN at 221/144. She was started on a Nicardipine drip in the ER with improvement in blood pressure. Patient's son at bedside and provides some history. He states that patient lives alone and usually does well. She has had two falls in the past and has been unable to get herself up. Patient relocated from [place] [facility] years ago. She does not routinely see a physician. Her son helps to care for her. Patient states that she tripped and fell in her home and that water was all over her floor. She is uncertain why there was so much water in her apartment. Details unclear. She denies head trauma, LOC. Denies fever, chest pain, palpitations, abdominal pain, nausea, vomiting. Denies GRADY/visual disturbance/numbness/tingling/weakness or difficulty walking. She has occasional chills as well as a dry cough. She has occasional diarrhea and constipation. Otherwise no complaints. Son states that she is at her baseline status at this time. ER Course: Haldol 5mg, Ativan, Nicardipine gtt, NSS Admission Exam Per Admitting Provider General: patient resting comfortably, NAD, non-toxic in appearance, AA&O to [facility], able to answer most questions appropriately and follow commands Skin: warm, dry, intact, no rashes or lesions, toenails overgrown with onychomycosis HEENT: NC/AT, PERRL, EOMI, anicteric sclera, conjunctiva without injection, external ear normal to inspection and nontender, nares patent, moist mucus membranes, lower dentures only, no top teeth, no oropharyngeal lesions, neck supple, trachea midline, no LAD, no thyromegaly, no JVD Heart: +S1/S2, regular, no m/r/g Lungs: equal air entry bilaterally, no rales/rhonchi/wheezes Abd: +BS, soft, NT/ND, no masses/organomegaly/ascites, small umbilical hernia, nontender,soft and reducible Ext: warm, 2+ pulses in UE/LE bilaterally, no clubbing/cyanosis or edema Neuro: nonfocal, patient AA&O x 2, speech intact, CN II-XII intact, sensation to light touch intact, no facial droop, moving all extremities on command with equal strength 5/5, gait not assessed Principal Diagnosis HTN Urgency Discharge Exam Constitutional well developed, well nourished and + obese; no acute distress Eyes + anicteric sclerae and PERRL ENMT Mouth: no tongue abnormality (anterior tongue w/o bite prajapati, thrush, etc.) and oral mucous membranes not dry Neck normal visual inspection and trachea midline Respiratory normal respiratory effort, lungs clear to auscultation Cardiovascular Rate/Rhythm: regular rate and regular rhythm Heart Sounds: normal S1 and normal S2 Vessels: posterior tibial pulses present and dorsalis pedis pulses present; no JVD Extremities: no edema Gastrointestinal (Abdomen) normal bowel sounds, soft, nontender, no hepatosplenomegaly Inspection/Auscultation: + visible herniation (umbilical - reducible; and ventral hernia superior to the umbilicus ) Musculoskeletal no cyanosis or clubbing, extremities motor strength 5/5 Head/Neck/Chest: normocephalic and head atraumatic Skin normal turgor; no rashes Neurologic moves all extremities Psychiatric Orientation: alert, oriented to person and oriented to place (knows she is in a hospital); + not oriented to time (at baseline, however did say it was either July or beginning of August) Genitourinary no hernandez Lymphatic no cervical or axillary lymphadenopathy Discharge Data Allergies Allergy/AdvReac Type Severity Reaction Status Date / Time aspirin [From Bufferin] Allergy Unknown Verified 08/19/20 23:07 calcium carbonate Allergy Unknown Verified 08/19/20 23:07 [From Bufferin] magnesium [From Bufferin] Allergy Unknown Verified 08/19/20 23:07 Penicillins Allergy Unknown Verified 08/19/20 23:07 Consultations 08/19/20 22:44 ED Decision to Admit Stat 08/20/20 01:29 Consult Neurology Routine Ordered Studies 08/19/20 20:36 CT angio head w con Urgent CT angio neck with con Urgent 03/20/21 20:38 CT head/brain wo con Urgent Hospital Course (1) Hypertensive urgency: resolved -- did recur on 08/21 afternoon/evening with code nieto and required dose of Haldol x1 No further agitation/aggression requiring haldol or ativan was not taking any meds at home for HTN -- son vitaliy had been on metoprolol in the past but she had taken her self off of it. 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 IVCD. Adan down to 35 afternoon but rates improved prior to discharge and actually became elevated to low 110s. * No syncope or lightheaded/dizziness. Initial pause during sleep however adan to 30-40s this afternoon after I stopped back to check on patient/update son at bedside * --> Decreased metoprolol to 12.5mg daily (she does not want to take multiple times daily so would avoid tartrate BID, she also declined considerations for other BP medications like HCTZ at this time) * --> Declined again AM of discharge however BPs better at 148/72 but did discuss at length long acting metoprolol the day before. She would like to hold off on medication at this time but we did send rx for 12.5mg dose to utilize as needed for elevated blood pressures if patient agreeable to use as needed. * BP did elevate to 169/83 prior to discharge however significantly improved from max of 221/144 during admission * To continue low sodium, heart healthy diet * Agreed to continue Becky aspirin but declined 81mg dose. Refused Plavix. * Patient DNR and confirms she has made peace with God and that he will take her when the time comes and that she continues to express declining of statin, plavix, metformin/diabetes management or further imaging/work-up at this time. She demonstrated capacity and answered appropriately (outside of when BPs elevated) and lengthy discussion daily with multiple trips to the room, conversations at bedside and calls with son Leif were underwent to further stratify how high risk she is for a stroke without treatment and preventative measures. * Patient at baseline mentally and had been living alone for past 2 years without medical follow up per her own wishes. * Son Leif working on getting assistance if she does end up wanting to leave [facility], but did discuss safety issue at present and unsafe to be alone at this time. 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 (2) Altered mental status: * Leif, the pt's son, reported her mother is now at baseline after haldol/ativan. * Cause of altered mental status at presentation - hypertensive encephalopathy? new stroke process? other? * HEAD CT NONCONTRAST -- NO ACUTE abn, old infarcts as described --> old small LEFT parietal infarct, focal area of encephalomalacia w/i cerebellar hemispheres c/w old infarcts. No definitive acute infarct identified * CTA Head/Neck IMPRESSION: 1. Occlusion of the basilar artery with diffuse moderate to severe thinning of the bilateral ripsaw operator. These are only faintly visualized on this study likely due to the occluded basilar artery. 2. Multifocal narrowing seen throughout the intracranial internal carotid arteries, bilateral ACAs, and bilateral MCA's without occlusion. 3. Multifocal narrowing within the bilateral cervical vertebral arteries as described above. 4. No significant stenosis or occlusion within the bilateral common or internal carotid arteries. 5. 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 --> Declined any and all further imaging/testing/interventions * Neurology consulted -- MRI difficult if not impossible and patient declined further imaging --> flat out refused. Refused repeat CT as well. * No s/sx seizure on exam in the way of tongue bite prajapati/etc but cannot def r/o. * Deferring on EEG given patient declining further work-up (3) Fall: * unknown details - unwitnessed. * found on floor in apartment. with water running to restaurant below * CPK wnl. * PT, OT evals -- at baseline. no room for skilled but meets for personal care as not safe for return home. * CM following --> arranged [facility] at discharge No injuries from fall (4) Chronic cerebral ischemia: * CTA and CT head with old strokes, extensive vascular disease/stenoses/plaque build-up, etc. * Son confirms prior TIAs and "mini-strokes" while she was living in [place] years ago. * Continued aspirin, however patient only agreeable to take regular dose -- better than not taking anything at all. Recs from neuro for Plavix but patient declined. * Considered high-intensity statin, but uncertain benefits are there given her advanced dementia --> Patient DECLINED (5) Dementia: * likely of vascular type given her imaging studies * appreciate neuro recs * B1 pending at time of discharge * Did require 2 doses of Haldol during admission for agitation -- 1 on admission and once on 08/21. Seroquel added to help with sundowning and paranoia but patient had declined this medication. * Would recommend continuing to offer for sleep and to help with hx mood disorders/paranoias (6) Recurrent strokes: * as seen on CT head (7) Basilar artery occlusion: * Patient found to have basilar artery occlusion on CTA head. Age indeterminant. * Likely chronic occlusion rather than acute. * Continued asa as above * Refused statin therapy (8) Diabetes: * T2DM suspected initially * Blood sugars ranging from 100-210 during admission * A1c 7.9 -- was intermittently letting them give her insulin while inpatient but declined any further medication for control of DM * Encouraged to continue to eat healthy well balanced diet and to monitor her sugars at discharge -- she states previously been making her own meals when food able to be brought in to her home but unclear on how much salt was in these. 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 (9) Hypertension: * With HTN urgency at presentation -- resolved initially, again occurred 08/21 * She did agree to AM metoprolol day prior and took 25mg dose. Did get bradycardic with 2.9 second pause and decision to cut dose back to 12.5mg dose was made * BPs were better this AM and she declined this dose --> discussed even as needed/continued BP monitoring and she did decline this. * Discussed with Leif --> sent rx for the 12.5mg dose at dischage and to have BPs monitored at [facility] and metoprolol offered to patient for elevated BPs * BPs better at 148/72 morning of discharge, but did discuss at length long acting metoprolol the day before. She would like to hold off on medication at this time but we did send rx for 12.5mg dose to utilize as needed for elevated blood pressures if patient agreeable to use as needed. * BP did elevate to 169/83 prior to discharge however significantly improved fr om max of 221/144 during admission (10) CAD (coronary artery disease): * 2014 - cardiac catheterization - nonobstructive CAD found. Performed in [place]. * Continue ASA, changed dose to 81mg daily however she is only agree to full dose, continued * Consider statin given LDL and her prior strokes, CAD, PAD, etc. 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 * TSH wnl * B1 pending * B12 wnl 397 * added seroquel 12.5mg HS given high risk of sundowning / delirium. and to help with paranoia -- REFUSED (12) DVT prophylaxis: * lovenox 40mg daily while inpatient -- refused today * Ambulating well, no calf edema/tenderness. No shortness of breath, stable on RA sonLeif, updated today Discharged to [facility] this afternoon with w/demetrius silver. Total Time Total Time Spent Total Time Spent (In Minutes): 80 Discharge Plan Discharge Items Patient Disposition: Transfer [facility] Reason For Visit: confusion, AMS Discharge Diagnosis: HTN Urgency Goals: You have been hospitalized for an acute medical problem. During your stay at [facility], we have made an effort to correct the problem that brought you to the hospital while keeping you as comfortable as possible. Medications were used to bring your condition under control and your discharge instructions will include directions for any medications you should take after leaving the hospital. Please make sure you see your Primary Care Provider as part of your follow up plan. Activity: Resume your previous activity Non-emergency contact: Primary Care Provider Call non-emergency contact if: you have any medication questions, your symptoms worsen and your pain is not controlled Follow-up/Referrals: PCP,NO [Primary Care Provider] - Diet: Carb Consistent or DM2 and Heart Healthy Addtl Attending Provider Instructions: You were hospitalized for acute confusion and found to have extremely elevated blood pressure. This was controlled with IV medications and you were attempted to start on metoprolol 25mg daily for better blood pressure control and decision to decrease to lowest dose of 12.5mg was made between son/yourself/and medical provider. You took this medication yesterday and blood pressures were under excellent con trol, however they are creeping back up at this time. We also discussed alternative medications but these were also declined. As per our discussion, I will send the 12.5mg doses and you should have your blood pressure checked at least twice daily and consider taking this if it is elevated to prevent complications like a stroke, which you are AT VERY HIGH RISK FOR! Neurology was consulted. Imaging shows evidence of old strokes as well as a basilar artery occlusion. Repeat imaging was declined, however recommendations were that you start plavix instead of your aspirin for prevention. You have also declined this medication but agrees to continue on the Becky aspirin, which is better than nothing at this time. You also declined treatment with cholesterol medication including Lipitor at thi s time for secondary prevention. It was also discussed about your diabetes, with A1c of 7.9 and you have declined starting medications like metformin or insulin at this time. Please note this does increase the inflammatory state of your body having uncontrolled sugars and you should watch your diet closely to help keep these levels in check. You should follow up with medical provider in the next week to monitor your progress. Please return to the emergency department with any worsening confusion, elevated blood pressures with systolic >200 or diastolic >90. It has been a pleasure being a part of the medical team providing for you while you have been in the hospital. Take care! Pending Studies at Discharge: No Stand-Alone Forms: My [employer] Skilled Items Patient informed of condition?: Yes DNR: Yes Discharge Level of Care: Skilled Communicable Disease: No Discharge Prognosis: Stable Lines: None Urinary Catheter: No Medications and DC Order Prescriptions: New metoprolol succinate 25 mg Tablet Extended Release 24 Hr 12.5 mg PO QAM Qty: 30 RF: 0 quetiapine 25 mg Tablet 12.5 mg PO HS PRN (Reason: sleep, paranoia) Qty: 20 RF: 0 Changed aspirin 325 mg Tablet 325 mg PO DAILY Qty: 0 RF: 0 Discharge Orders: Discharge Order (Routine); Ordered 08/23/20 Ordered By: Cathy Draper/Other Patient Handouts: High Blood Sugar (Hyperglycemia), Hypoglycemia (Low Blood Sugar), Managing Type 2 Diabetes Admission Data Admit Date/Time: 08/19/20 23:56 Attending Provider: Sarah Galarza Admit Provider: Cira Mayer Primary Care Provider: PCP,NO Other Providers: Cira Mayer ; Jeremías Jamison ; Fidel Kent ; Andie Shane ; Ryanne Voss ; [facility], Other Interventions: Discharge Summary Assessment (RN) Last Done: 08/23/20 14:08 Supervising Physician Co-Signing Physician Notes PA Supervision Note: I personally saw and examined the patient. I verified all saldaña points and agree with ELEUTERIO Larkin with the following exceptions and/or additions: Patient was resting when I saw her and told me that she just wanted to sleep and wanted to be left alone. She would not allow me to examine her. She seemed comfortable and her blood pressures were acceptable. Vitals reviewed NAD, obese, anicteric sclera Lungs clear to auscultation bilaterally, she would not allow me to examine her anterior chest wall Legs no edema 74-year-old female here with hypertensive urgency and altered mental status, improved Recalcitrant to most all treatment interventions recommended Stable for discharge to SNF Coding Level of Care Code D/C Day Management >30 mins Diagnoses Hypertensive urgency I16.0 Altered mental status R41.82 Altered mental status type: unspecified Fall [id number].XXXD Encounter type: subsequent encounter Chronic cerebral ischemia I67.82 Dementia F01.50 Dementia behavioral disturbance: without behavioral disturbance Dementia type: vascular dementia Recurrent strokes I63.9 Basilar artery occlusion I65.1 Diabetes E13.69 Diabetes mellitus complication status: with other specified complication 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 transplanted heart: ramona heart History of mood disorder Z86.59 DVT prophylaxis Z29.9
== END 2020-08-23 15:40 | DRG 305 ==
LOC: ED 20:17 → SUATTDRO 23:56 → 2S 23:56